=== PATIENT | male | born 1975 | race Caucasian/White ===

== ENCOUNTER → 2020-09-30 10:56 | Outpatient (BNVA) | payer BC, SELFPAY | PROVIDERS: PCP Nurse Practitioner Adult Health; Referring Provider Nurse Practitioner Adult Health; Visit Provider Internal Medicine | DX: E10.65 Type 1 diabetes mellitus with hyperglycemia (principal); E78.5 Hyperlipidemia, unspecified; I10 Essential (primary) hypertension; E04.2 Nontoxic multinodular goiter; E55.9 Vitamin D deficiency, unspecified | CPT/HCPCS: 82947 ==

== ENCOUNTER 2021-01-31 15:12 | Outpatient (REF) | payer BC, SELFPAY ==
[2021-01-31 18:00] LABS: Alanine Aminotransferase 43 U/L (0-40); Albumin Level 4.4 g/dL (3.5-5.0); Alkaline Phosphatase 57 U/L (39-117); Anion Gap 13 (12-20); Aspartate Amino Transferase 30 U/L (5-37); Bilirubin Total 0.5 mg/dL (0.0-1.0); Blood Urea Nitrogen 15 mg/dL (9-16); Calcium 9.1 mg/dL (8.4-10.2); Carbon Dioxide 25 mmol/L (22-29); Chloride 104 mmol/L (96-108); Cholesterol 203 mg/dL; Estimated Glomerular Filt Rate > 60; Glucose Random 231 mg/dL (60-115); HDL Cholesterol 37 mg/dL; LDL Cholesterol Calculated 103 mg/dl; Potassium 4.6 mmol/L (3.3-5.1); Sodium 137 mmol/L (135-145); Total Protein 7.3 g/dL (6.5-8.0); Triglycerides 317 mg/dL
[2021-01-31 18:22] LABS: Free T4 (Free Thyroxine) 0.86 ng/dL (0.71-1.85); Thyroid Stimulating Hormone 0.67 uIU/mL (0.32-4.0); Vitamin D 25-OH Total 26.6 ng/mL (>30)
[2021-02-01 03:39] LABS: Estimated Average Glucose 169 mg/dL; Hemoglobin A1c % 7.5 %
[2021-02-01 07:26] LABS: LDL Cholesterol Direct 134 mg/dL (<100)
== END 2021-01-31 15:13 | disposition home or self-care (01) ==
LOC: HO.LAB 15:12
PROVIDERS: PCP Nurse Practitioner Adult Health; Visit Provider Internal Medicine
DX: E10.65 Type 1 diabetes mellitus with hyperglycemia (principal); E04.2 Nontoxic multinodular goiter; E78.5 Hyperlipidemia, unspecified; I10 Essential (primary) hypertension; E55.9 Vitamin D deficiency, unspecified; Z79.4 Long term (current) use of insulin; Z79.899 Other long term (current) drug therapy
CPT/HCPCS: 36415; 80053; 80061; 82306; 82947; 83036; 83721; 84439; 84443

== ENCOUNTER 2021-02-08 13:43 | Outpatient (REF) | payer BC, SELFPAY ==
--- NOTE | ~2021-02-08 | US_ITS ---
EXAMINATION: US THYROID CLINICAL INFORMATION: Nontoxic multinodular goiter. COMPARISON: Ultrasound thyroid soft tissues neck 01/23/2020. Ultrasound soft tissue lymph node evaluation 09/23/2019. TECHNIQUE: Linear transducer grayscale and color Doppler examination with attention to the region of the thyroid. FINDINGS: SIZE: Measurements of the thyroid lobes and nodules are given in sagittal, anteroposterior and transverse dimensions respectively. Right Thyroid Lobe: 0.8 x 1.8 x 1.8 cm, volume 8.1 mL. Previously 5.6 x 1.8 x 1.7 cm, volume 9.0 mL. Parenchyma: The gland echotexture is homogeneous. Thyroid vascularity is normal. Left Thyroid Lobe: 1.7 x 1.5 x 5.3 cm, volume 5.3 mL. Previously 1.4 x 1.7 x 6.0 cm, volume 6.0 mL. Parenchyma: The gland echotexture is homogeneous. Thyroid vascularity is normal. Isthmus: 0.4 cm in maximum AP dimension. Previously 0.5 cm. Estimated total number of nodules greater than or equal to 1 cm: 0. There are 3 colloid cysts seen in the right lobe. NODES: No lymphadenopathy is seen in the tissue surrounding the thyroid gland. US/US thyroid IMPRESSION: Upper normal size thyroid gland. Three small right colloid cysts.
== END 2021-02-08 13:44 | disposition home or self-care (01) ==
LOC: HO.US 13:43
PROVIDERS: Visit Provider Internal Medicine
DX: E04.2 Nontoxic multinodular goiter (principal)
CPT/HCPCS: 76536

== ENCOUNTER → 2021-03-30 10:10 | Outpatient (BNVA) | payer BC, SELFPAY | PROVIDERS: PCP Nurse Practitioner Adult Health; Visit Provider Internal Medicine ==

== ENCOUNTER 2021-08-24 14:08 | Outpatient (REF) | payer BC, SELFPAY ==
[2021-08-24 16:31] LABS: Estimated Average Glucose 166 mg/dL; Hemoglobin A1c % 7.4 %
[2021-08-24 16:33] LABS: Alanine Aminotransferase 32 U/L (0-40); Albumin Level 4.3 g/dL (3.5-5.0); Alkaline Phosphatase 63 U/L (39-117); Anion Gap 10 (12-20); Aspartate Amino Transferase 25 U/L (5-37); Bilirubin Total 0.7 mg/dL (0.0-1.0); Blood Urea Nitrogen 10 mg/dL (9-16); Calcium 9.7 mg/dL (8.4-10.2); Carbon Dioxide 30 mmol/L (22-29); Chloride 104 mmol/L (96-108); Cholesterol 137 mg/dL; Estimated Glomerular Filt Rate > 60; Glucose Random 141 mg/dL (60-115); HDL Cholesterol 29 mg/dL; Potassium 4.3 mmol/L (3.3-5.1); Sodium 140 mmol/L (135-145); Total Protein 7.2 g/dL (6.5-8.0); Triglycerides 406 mg/dL
[2021-08-24 16:54] LABS: Thyroid Stimulating Hormone 1.82 uIU/mL (0.32-4.0); Vitamin D 25-OH Total 23.8 ng/mL (>30)
[2021-08-25 07:56] LABS: LDL Cholesterol Direct 68 mg/dL (<100)
[2021-08-25 16:16] LABS: Creatinine Urine 43.68 mg/dL; Microalbum/Creatinine Ratio Ur 13.7 ug/mg cr
== END 2021-08-24 14:09 | disposition home or self-care (01) ==
LOC: HO.LAB 14:08
PROVIDERS: PCP Nurse Practitioner Adult Health; Visit Provider Internal Medicine
DX: E10.65 Type 1 diabetes mellitus with hyperglycemia (principal); E78.5 Hyperlipidemia, unspecified; E04.2 Nontoxic multinodular goiter; E55.9 Vitamin D deficiency, unspecified; I10 Essential (primary) hypertension; Z79.899 Other long term (current) drug therapy; Z79.4 Long term (current) use of insulin
CPT/HCPCS: 36415; 80053; 80061; 82043; 82306; 82947; 83036; 83721; 84439; 84443

== ENCOUNTER → 2021-09-05 12:28 | Outpatient (BNVA) | payer BC, SELFPAY | PROVIDERS: PCP Nurse Practitioner Adult Health; Visit Provider Registered Nurse Diabetes Educator ==

== ENCOUNTER → 2021-11-03 14:34 | Outpatient (BNVA) | payer BC, SELFPAY | PROVIDERS: PCP Nurse Practitioner Adult Health; Visit Provider Registered Nurse Diabetes Educator ==

== ENCOUNTER → 2021-12-22 14:55 | Outpatient (BNVA) | payer BC, SELFPAY | PROVIDERS: PCP Nurse Practitioner Adult Health; Visit Provider Registered Nurse Diabetes Educator ==

== ENCOUNTER → 2022-03-16 11:37 | Outpatient (BNVA) | payer BC, SELFPAY | PROVIDERS: PCP Nurse Practitioner Adult Health; Visit Provider Internal Medicine | DX: E10.65 Type 1 diabetes mellitus with hyperglycemia (principal); E78.5 Hyperlipidemia, unspecified; I10 Essential (primary) hypertension; E04.2 Nontoxic multinodular goiter; E55.9 Vitamin D deficiency, unspecified ==

== ENCOUNTER 2022-06-06 15:31 | Outpatient (REF) | payer BC, SELFPAY ==
--- NOTE | ~2022-06-06 | US_ITS ---
EXAMINATION: US THYROID CLINICAL INFORMATION: Nontoxic multinodular goiter. COMPARISON: US thyroid 02/08/2021 TECHNIQUE: Linear transducer grayscale and color Doppler examination with attention to the region of the thyroid. FINDINGS: SIZE: Measurements of the thyroid lobes and nodules are given in sagittal, anteroposterior and transverse dimensions respectively. Right Thyroid Lobe: 5.2 x 2.0 x 1.8 cm, volume 9.8 mL. Previously 4.8 x 1.8 x 1.8 cm, volume 8.1 mL. Parenchyma: The gland echotexture is homogeneous. Thyroid vascularity is normal. Left Thyroid Lobe: 4.2 x 1.5 x 1.5 cm, volume 4.8 mL. Previously 4.0 x 1.7 x 1.5 cm, volume 5.3 mL. Parenchyma: The gland echotexture is homogeneous. Thyroid vascularity is normal. Isthmus: 0.4 cm in maximum AP dimension. Previously 0.4 cm. No suspicious focal thyroid nodule is seen. Two TR 1 colloid cysts are seen in the right thyroid lobe. NODES: No lymphadenopathy is seen in the tissue surrounding the thyroid gland. US/US thyroid IMPRESSION: No suspicious thyroid nodule. Two TR 1 colloid cysts are seen in the right thyroid lobe for which no follow-up imaging is recommended. ACR TI-RADS RECOMMENDATION REFERENCE: Ultrasound-guided fine-needle aspiration, followup ultrasound, no further follow up. * TR1 (0 point) and TR 2 (2 points): No FNA or follow up * TR3 (3 points): FNA if more than or equal to 2.5 cm in maximum dimension, followup ultrasound in 1, 3 and 5 years if 1.5 to 2.4 cm in maximum dimension. * TR4 (4-6 points): FNA if more than or equal to 1.5 cm in maximum dimension, followup ultrasound in 1, 2, 3 and 5 years if 1 to 1.4 cm in maximum dimension. * TR5 (more than or equal to 7 points): FNA if more than or equal to 1 cm in maximum dimension, followup ultrasound every year for 5 years if 0.5 to 0.9 cm in maximum dimension. * TR3, TR4 or TR5 nodules that are below the size threshold for follow up receive no follow up.
== END 2022-06-06 15:32 | disposition home or self-care (01) ==
LOC: HO.US 15:31
PROVIDERS: Visit Provider Internal Medicine
DX: E04.2 Nontoxic multinodular goiter (principal)
CPT/HCPCS: 76536

== ENCOUNTER → 2023-02-28 08:21 | Outpatient (BNVA) | payer BC, SELFPAY | PROVIDERS: PCP Nurse Practitioner Adult Health; Visit Provider Internal Medicine | DX: E10.65 Type 1 diabetes mellitus with hyperglycemia (principal); E78.5 Hyperlipidemia, unspecified; I10 Essential (primary) hypertension; E04.2 Nontoxic multinodular goiter; E55.9 Vitamin D deficiency, unspecified; Z79.899 Other long term (current) drug therapy | CPT/HCPCS: 82947; 83036 ==

== ENCOUNTER 2023-02-28 09:05 | Outpatient (REF) | payer BC, SELFPAY ==
[2023-02-28 14:21] LABS: Cholesterol 131 mg/dL; HDL Cholesterol 27 mg/dL; Triglycerides 629 mg/dL
[2023-02-28 14:39] LABS: Free T4 (Free Thyroxine) 0.92 ng/dL (0.71-1.85); Thyroid Stimulating Hormone 3.72 uIU/mL (0.32-4.0); Vitamin D 25-OH Total 24.5 ng/mL (>30)
[2023-03-02 03:44] LABS: LDL Cholesterol Direct 42 mg/dL (<100)
== END 2023-02-28 09:06 | disposition home or self-care (01) ==
LOC: HO.10HDL 09:05
PROVIDERS: Visit Provider Internal Medicine
DX: E10.65 Type 1 diabetes mellitus with hyperglycemia (principal); E55.9 Vitamin D deficiency, unspecified; E04.2 Nontoxic multinodular goiter; E78.5 Hyperlipidemia, unspecified
CPT/HCPCS: 36415; 80061; 82306; 83721; 84439; 84443

== ENCOUNTER 2023-12-03 15:47 | Outpatient (AMB) | payer BC, SELFPAY ==
[2023-12-03 15:50] VITALS: BP 146/80; PULSE 76; BMI 36.3
--- NOTE | 2023-12-03 15:50 | A.OFFVIS_ITS ---
Intake Vital Signs 12/03/23 15:50 Height 5 ft 7 in Weight 231 lb 14.821 oz BMI 36.3 BP 146/80 H Blood Pressure Location Lt brachial Position Sitting Pulse 76 Pulse Source Pulse Oximeter Intake Visit Reasons: dm Intake Note: Patient present today to follow up on Type 1 Diabetes Mellitus, last seen by Dr. Alba on 02/28/2023. Last Diabetic Eye exam: 08/09/2023 [facility] Last Podiatry Visit: 08/2023 Random Glucose: 96 mg/dl HgA1C: 6.8% Administration Intern Required: No Accompanied by: Significant Other Allergies niacin [Niaspan Extended-Release] Allergy (Severe, Verified 12/03/23 16:03) Itching morhine Allergy (Unknown, Uncoded 02/28/23 08:44) Hallucinations Statin Adverse Reaction (Unknown, Uncoded 02/28/23 08:44) Muscle pain Medication List - Last Reconciled 12/03/23 by Reggie Ford MD aspirin 81 mg PO DAILY carvedilol 25 mg PO BID cholecalciferol (vitamin D3) 50 mcg PO DAILY 30 days coQ10 (ubiquinol) (Qunol Tigre CoQ10) 200 mg PO DAILY empagliflozin (Jardiance) 10 mg PO DAILY ezetimibe 10 mg PO DAILY fenofibrate 150 mg PO DAILY 30 days fluoxetine 40 mg PO DAILY furosemide 40 mg PO DAILY gabapentin 1,200 mg PO QID insulin aspart U-100 (Novolog FlexPen U-100 Insulin aspart) 1 sliding scale dose subcut USEASDIRECTD insulin glargine U-300 conc (Toujeo SoloStar U-300 Insulin) 90 units (0.3 mL) subcut DAILY lamotrigine 100 mg PO DAILY lisinopril 20 mg PO DAILY loratadine 10 mg PO DAILY magnesium hydroxide (Dulcolax (magnesium hydroxide)) 400 mg PO DAILY PRN metformin 1,000 mg PO BID rosuvastatin 40 mg PO DAILY 30 days ticagrelor (Brilinta) 90 mg PO BID HPI HPI Comments History of Present Illness Details 48 year-old male with a past medical history of type 1 diabetes, nontoxic multinodular goiter who is seen in follow-up today for the same. Diagnosed with type 1 diabetes in 1997. Developed Pancreatitis in 2014 and has subsequently had 2 pancreatic pseudocysts. Current regimen is Metformin 1000 mg PO BID, Tresiba 93 units qAM and log ICR 4, ISF 50 with goal of 120. He reports good compliance with his insulin though he does admit to not accurately calculating portion sizes and carbohydrates for his mealtime boluses. He has DEXCOM G6 sensor. 14 days of data downloaded from 11/20/23-12/03/23. This reveals an average glucose of 161 with an SD of 58. GMI is 7.2%. He is at goal 66% of the time, above goal 33% of the time, and below goal <1% of the time.. Snow shows elevations in post-dinner glucose but trend downward overnight Has low sugars rarely. Treats according to the rule of 15's. Denies family history of autoimmunity. Has eyes checked yearly, last eye exam 2 mos ago has retinopathy. Has Neuropathy, sees podiatry regularly. 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 Foot exam completed 09/30/2020. Denies nephropathy, on Lisinopril 10 mg PO daily. UAC 13.7 08/24/2021. Has a history of HLD, and premature CAD in his father with prior ID in his 40's. LDL 46 03/14/2022. On Rosuvastatin 5 mg PO daily and also Zetia 10 mg PO daily. Has CAD and did have 2 stents placed recently. Has attended [facility]. Is interested in the Omnipod. Denies prior DKA. Continues to drink sugary beverages during his waking hours. Denies severe hypoglycemia in the past. Also with nontoxic MNG. Thyroid US 02/08/2021: Right Thyroid Lobe: 0.8 x 1.8 x 1.8 cm, volume 8.1 mL. Previously 5.6 x 1.8 x 1.7 cm, volume 9.0 mL. Parenchyma: The gland echotexture is homogeneous. Thyroid vascularity is normal. Left Thyroid Lobe: 1.7 x 1.5 x 5.3 cm, volume 5.3 mL. Previously 1.4 x 1.7 x 6.0 cm, volume 6.0 mL. Parenchyma: The gland echotexture is homogeneous. Thyroid vascularity is normal. Isthmus: 0.4 cm in maximum AP dimension. Previously 0.5 cm. Estimated total number of nodules greater than or equal to 1 cm: 0. There are 3 colloid cysts seen in the right lobe. NODES: No lymphadenopathy is seen in the tissue surrounding the thyroid gland. Labs: Laboratory Tests 02/14/19 05/10/20 05/10/20 00:00 08:30 08:30 Sodium 141 Potassium 4.0 Creatinine 0.82 Est GFR (Non-Af Am er) > 60 Hgb A1c (Clinic) LDL Cholesterol Di rect 93 25-OH Vitamin D To isabela 19.2 Microalb/Creat Rat io 16.6 09/30/20 11:24 Sodium Potassium Creatinine Est GFR (Non-Af Am er) Hgb A1c (Clinic) 7.5 H LDL Cholesterol Di rect 25-OH Vitamin D To isabela Microalb/Creat Rat io PFSH Medical History HLD (hyperlipidemia) HTN (hypertension) Multinodular thyroid T1DM (type 1 diabetes mellitus) Vitamin D deficiency Surgical History Hx of heart artery stent Hx of cholecystectomy History of appendectomy Family History Father Pancreatic disease CVD (cardiovascular disease) HTN (hypertension) Mother HTN (hypertension) Social History Alcohol intake: current Patient Tobacco Use Status: Never used Tobacco Physical Exam Vital Signs: Last Vital Signs Pulse 76 12/03/23 15:50 BP 146/80 H 12/03/23 15:50 BMI result Body Mass Index 36.3 Absence of Cushingoid features. Absence of acromegalic features. Neck exam reveals nl size thyroid about 15 gms. No thyroid nodules palpable. No carotid bruits present. Lungs CTA. Heart S1 S2, Reg R/R. No M/R/ G. Skin exam reveals absence of vitiligo or acanthosis nigricans. Abdominal exam reveals Soft NT/ND with NA BS. No organomegaly present. Neck Other: . Extrem Other: Visual exam of foot performed. Digit fifth digit amputation No ulcerations or open lesions. No onchomycosis, no callouses.Pulses 2 + distally Sensation decreased to monofilament exam. Vibratory sensation sensed is i decreased with 128 Hz tuning fork Results Reviewed Results Reviewed: Laboratory Last Values Glucose (Clinic) 96 mg/dL (60-115) 12/03/23 16:01 Assessment & Plan Assessment & Plan (1) T1DM (type 1 diabetes mellitus): Code(s): E10.9 - Type 1 diabetes mellitus without complications Qualifiers: Diabetes mellitus complication status: with hyperglycemia Qualified Code(s): E10.65 - Type 1 diabetes mellitus with hyperglycemia Plan: This is a 48-year-old white male with a history of type 1 diabetes being treated with basal-bolus insulin metformin with excellent glycemic control and known microvascular and macrovascular complications namely retinopathy, neuropathy and CAD Plan is to continue the current regimen. Patient will follow-up with the CDE and he was interested in getting an Omnipod 5 and may pursue this or iLet pump. I also prescribed glucagon rescue Baquimi . Lastly, we will check microalbumin to creatinine ratio lipid profile. I agree with airconditioning drafting officer starting Jardiance 10 mg and he will follow patient as this will be used in combination with furosemide. (2) Multinodular thyroid: Code(s): E04.2 - Nontoxic multinodular goiter Plan: Subcentimeter nodules not needing follow-up Orders: Orders AMB Hemoglobin A1c Today E10.9 - Type 1 diabetes mellitus without complications Medications: New glucagon 3 mg/actuation (Baqsimi) 3 mg intranasal ONCE 2 ea 4RF glucagon 3 mg/actuation (Baqsimi) 3 mg intranasal ONCE 2 ea 4RF Refilled insulin glargine U-300 conc (Toujeo SoloStar U-300 Insulin) 90 units (0.3 mL) subcut DAILY 9 mL 11RF Coding Level of Care Code Est Pt Level 4 (81929) Diagnoses Type 1 diabetes mellitus with hyperglycemia E10.65 Diabetes mellitus complication status: with hyperglycemia Multinodular thyroid E04.2
[2023-12-03 16:05] LABS: Glucose, Whole Blood 96 mg/dL (60-115)
== END 2023-12-03 16:45 | disposition home or self-care (01) ==
PROVIDERS: PCP Nurse Practitioner Adult Health; Visit Provider Internal Medicine Endocrinology, Diabetes & Metabolism
DX: E10.9 Type 1 diabetes mellitus without complications (principal)
CPT/HCPCS: 99214

== ENCOUNTER → 2023-12-03 15:47 | Outpatient (BNVA) | payer BC, SELFPAY | PROVIDERS: PCP Nurse Practitioner Adult Health; Visit Provider Internal Medicine Endocrinology, Diabetes & Metabolism | DX: E10.65 Type 1 diabetes mellitus with hyperglycemia (principal); E04.2 Nontoxic multinodular goiter | CPT/HCPCS: 82947; 83036 ==

== ENCOUNTER 2023-12-11 14:47 | Outpatient (AMB) | payer BC, SELFPAY ==
--- NOTE | 2023-12-11 15:44 | A.OFFVIS_ITS ---
Intake Intake Visit Reasons: DM/confirmed Leather Polisher Required: No Accompanied by: Self / Same As Patient Allergies niacin [Niaspan Extended-Release] Allergy (Severe, Verified 12/03/23 16:03) Itching morhine Allergy (Unknown, Uncoded 02/28/23 08:44) Hallucinations Statin Adverse Reaction (Unknown, Uncoded 02/28/23 08:44) Muscle pain HPI Comprehensive Diabetes Asmnt Most Recent Diabetes Results: Hemoglobin A1c 7.3 % 12/01/19 Microalb/Creat Ratio 13.7 ug/mg cr 08/24/21 Cholesterol 131 mg/dL 02/28/23 HDL Cholesterol 27 mg/dL 02/28/23 Triglycerides 629 mg/dL 02/28/23 Creatinine 0.77 mg/dL (0.5-1.4) 08/24/21 Blood Urea Nitrogen 10 mg/dL (9-16) 08/24/21 Sodium 140 mmol/L (135-145) 08/24/21 Potassium 4.3 mmol/L (3.3-5.1) 08/24/21 Chloride 104 mmol/L (96-108) 08/24/21 Carbon Dioxide 30 mmol/L (22-29) H 08/24/21 Calcium 9.7 mg/dL (8.4-10.2) 08/24/21 AST 25 U/L (5-37) 08/24/21 ALT 32 U/L (0-40) 08/24/21 Total Protein 7.2 g/dL (6.5-8.0) 08/24/21 Albumin 4.3 g/dL (3.5-5.0) 08/24/21 [facility] Medical History HLD (hyperlipidemia) HTN (hypertension) Multinodular thyroid T1DM (type 1 diabetes mellitus) Vitamin D deficiency Surgical History Hx of heart artery stent Hx of cholecystectomy History of appendectomy Family History Father Pancreatic disease CVD (cardiovascular disease) HTN (hypertension) Mother HTN (hypertension) Social History Alcohol intake: current Patient Tobacco Use Status: Never used Tobacco Assessment & Plan Assessment & Plan (1) T1DM (type 1 diabetes mellitus): Code(s): E10.9 - Type 1 diabetes mellitus without complications Qualifiers: Diabetes mellitus complication status: with hyperglycemia Qualified Code(s): E10.65 - Type 1 diabetes mellitus with hyperglycemia Plan: Pump Assessment: Type of DM type 1 Current Insulin Rx: MDI Patient takes insulin as prescribed: Yes Patient? checks BG with Dexcom G6 Patient? reports glycemic control as: Good Most recent Hgb A1C: 6.8%, November 2023 Frequency of low BG: Candy Low BG treatment: Infrequently Frequency of high BG: Daily Has pt been on a pump in the past? No Reviewed insulin pump basics today with Patient. Explained pros and cons of insulin pumps. Showed pt various pumps, infusion sets, and cgms currently available. Reviewed need to wear pump 24/ and need to change infusion set every 3 days. Also stressed importance of frequent BG checks, 4x daily minimum or use pump that is integrated with CGM.? Patient demonstrated motivation for continued insulin pump education and understands the need to complete education prior to starting insulin pump for best outcome. Reviewed the basic principles of carbohydrate counting.? Insulin to carb ratio, and insulin sensitivity factor calculated based on Patient's TDD estimate 173 units Patient currently uses insulin to carbohydrate ratio of 1-4 Sensitivity factor 1-8 Pt reports that desired blood glucose target is 100-120 mg/dL Pt able to calculated needed insulin based on estimated carbohydrate content Pt demonstrated at visit how to calculate mealtime insulin bolus and correction bolus. Instructed patient that there may need to be adjustment to insulin to carb ratio and sensitivity factor based on blood glucose trends. Patient is interested in Omnipod 5 Patient Instructions: Patient will contact early childhood special educator for insulin pump training appointment Coding Level of Care Code Est Pt Level 1 (64710) Diagnoses Type 1 diabetes mellitus with hyperglycemia E10.65 Diabetes mellitus complication status: with hyperglycemia
== END 2023-12-11 15:48 | disposition home or self-care (01) ==
PROVIDERS: PCP Nurse Practitioner Adult Health; Visit Provider Registered Nurse Diabetes Educator
DX: E10.65 Type 1 diabetes mellitus with hyperglycemia (principal)

== ENCOUNTER → 2023-12-11 14:47 | Outpatient (BNVA) | payer BC, SELFPAY | PROVIDERS: PCP Nurse Practitioner Adult Health; Visit Provider Registered Nurse Diabetes Educator | DX: Z46.81 Encounter for fitting and adjustment of insulin pump (principal); E10.65 Type 1 diabetes mellitus with hyperglycemia | CPT/HCPCS: 99211 ==

== ENCOUNTER 2024-04-01 15:16 | Outpatient (AMB) | payer BC, SELFPAY ==
--- NOTE | 2024-04-01 16:09 | A.OFFVIS_ITS ---
Intake Intake Visit Reasons: Pump training/CONFIRMED Real Estate Photographer Required: No Accompanied by: Self / Same As Patient Allergies niacin [Niaspan Extended-Release] Allergy (Severe, Verified 12/03/23 16:03) Itching morhine Allergy (Unknown, Uncoded 02/28/23 08:44) Hallucinations Statin Adverse Reaction (Unknown, Uncoded 02/28/23 08:44) Muscle pain HPI Comprehensive Diabetes Asmnt Most Recent Diabetes Results: Cholesterol 131 mg/dL 02/28/23 HDL Cholesterol 27 mg/dL 02/28/23 Triglycerides 629 mg/dL 02/28/23 PFSH Medical History HLD (hyperlipidemia) HTN (hypertension) Multinodular thyroid T1DM (type 1 diabetes mellitus) Vitamin D deficiency Surgical History Hx of heart artery stent Hx of cholecystectomy History of appendectomy Family History Father Pancreatic disease CVD (cardiovascular disease) HTN (hypertension) Mother HTN (hypertension) Social History Alcohol intake: current Patient Tobacco Use Status: Never used Tobacco Assessment & Plan Assessment & Plan (1) T1DM (type 1 diabetes mellitus): Code(s): E10.9 - Type 1 diabetes mellitus without complications Qualifiers: Diabetes mellitus complication status: with hyperglycemia Qualified Code(s): E10.65 - Type 1 diabetes mellitus with hyperglycemia Plan Patient presents for pump training for Omnipod 5 pump and CGM training today. Patient set up insulin pump independently, came in today with insulin pump already running. Reviewed patient's pump setting, did recommend to patient he reduce basal rates, and enter carbohydrates more frequently for optimal insulin pump control The following topics were reviewed today: -Pump therapy basic concepts: Basal/bolus, insulin to carb ratio, correction factor, insulin on board -Device settings: Bluetooth/mobile connection (if applicable), correct date and time, sound volume -connected patient to [employer] account CGM info Above target 33% At target 67% Below target 0% Average glucose for the past 11 days 169 mg/dL Insulin delivery settings Reprogramed insulin to carb ratio, correction factor, target blood glucose, suspend or resume insulin delivery, bolus limit and basal limit settings, based on CGM data Instructed patient to only use room temperature insulin, how to load cartridge or fill pod, with insulin. Fill tubing and cannula (if applicable) Inserting infusion set or starting pod Troubleshooting after starting new pod or inserting new insulin set: Occlusion, adhesive tape sensitivity, redness Check BG 2 hours after site change Safety information: Importance of a backup plan, for manual injections, proper prescriptions and emergency supplies ketone strips, and rules for testing for ketones Patient understands the basic concepts of pump therapy, how to give insulin for meals and snacks, how to troubleshoot for hyper and hypoglycemia. Setting verified by [facility] Basal rate(s) (units/hour) : 12 AM? to 12 AM? 15 units / hr Bolus setting Insulin Carbohydrate Ratio (s) 12 AM? to 12 AM 1:3 Correction Factor / Sensitivity Factor 12 AM? to 12 AM 1:6 Active Insulin Time:? 2 hours Target(s): 12 AM? to 12 AM 110 mg/dL Correction threshold: 120 mg/dL Patient will follow up with [facility] as instructed Patient will contact [facility] with questions or concerns, patient given IT number to support in any technical issues related to insulin pump Portions of this note were created using voice recognition software, please excuse any words or phrases that may have been misinterpreted. Coding Level of Care Code Est Pt Level 1 (88708) Diagnoses Type 1 diabetes mellitus with hyperglycemia E10.65 Diabetes mellitus complication status: with hyperglycemia
== END 2024-04-01 16:16 | disposition home or self-care (01) ==
PROVIDERS: PCP Nurse Practitioner Adult Health; Visit Provider Registered Nurse Diabetes Educator
DX: E10.65 Type 1 diabetes mellitus with hyperglycemia (principal)

== ENCOUNTER → 2024-04-01 15:16 | Outpatient (BNVA) | payer BC, SELFPAY | PROVIDERS: PCP Nurse Practitioner Adult Health; Visit Provider Registered Nurse Diabetes Educator ==

== ENCOUNTER 2024-04-01 16:13 | Outpatient (REF) | payer BC, SELFPAY ==
[2024-04-01 17:21] LABS: Alanine Aminotransferase 28 U/L (0-40); Albumin Level 4.5 g/dL (3.5-5.0); Alkaline Phosphatase 45 U/L (39-117); Anion Gap 15 (12-20); Aspartate Amino Transferase 33 U/L (5-37); Bilirubin Total 0.3 mg/dL (0.0-1.0); Blood Urea Nitrogen 25 mg/dL (9-16); Calcium 10.1 mg/dL (8.4-10.2); Carbon Dioxide 24 mmol/L (22-29); Chloride 108 mmol/L (96-108); Cholesterol 96 mg/dL (<200); Estimated Glomerular Filt Rate > 60; Glucose Random 139 mg/dL (60-115); HDL Cholesterol 28 mg/dL (>40); LDL Cholesterol Calculated 16 mg/dL (<100); Potassium 4.7 mmol/L (3.3-5.1); Sodium 142 mmol/L (135-145); Total Protein 7.5 g/dL (6.5-8.0); Triglycerides 263 mg/dL (<150)
== END 2024-04-01 16:14 | disposition home or self-care (01) ==
LOC: HO.LAB 16:13
PROVIDERS: Internal Medicine Endocrinology, Diabetes & Metabolism; Visit Provider Physician Assistant
DX: E10.65 Type 1 diabetes mellitus with hyperglycemia (principal)
CPT/HCPCS: 36415; 80053; 80061; 99211

== ENCOUNTER 2024-05-15 17:05 | Outpatient (REF) | payer BC, SELFPAY ==
[2024-05-15 17:54] LABS: Creatinine Urine 196.11 mg/dL; Microalbum/Creatinine Ratio Ur 6.6 ug/mg cr (<30)
== END 2024-05-15 17:06 | disposition home or self-care (01) ==
LOC: HO.LNP 17:05
PROVIDERS: Visit Provider Internal Medicine Endocrinology, Diabetes & Metabolism
DX: E10.65 Type 1 diabetes mellitus with hyperglycemia (principal)
CPT/HCPCS: 82043; 82570

== ENCOUNTER 2024-05-19 13:52 | Outpatient (AMB) | payer BC, SELFPAY ==
--- NOTE | 2024-05-19 13:56 | A.OFFVIS_ITS ---
Vital Signs 05/19/24 13:57 Height 5 ft 7 in Weight 233 lb 11.04 oz BMI 36.6 BP 160/92 H Blood Pressure Location Lt brachial Position Sitting Pulse 67 Pulse Source Pulse Oximeter Intake Visit Reasons: F/U T1DM/confirmed Intake Note: Patient presents today to follow up on D2MT. Last Diabetic Eye exam: 01/2024 Last Podiatry Visit: 01/2024 Random Glucose: 230 mg/dl HgA1c: 7.2% Data Modeling Architect Required: No Accompanied by: Self / Same As Patient Allergies niacin [Niaspan Extended-Release] Allergy (Severe, Verified 05/19/24 14:02) Itching morhine Allergy (Unknown, Uncoded 05/19/24 14:02) Hallucinations Statin Adverse Reaction (Unknown, Uncoded 05/19/24 14:02) Muscle pain HPI Comments Details: 49 year-old male with a past medical history of type 1 diabetes, nontoxic multinodular goiter who is seen in follow-up today for the same. Diagnosed with type 1 diabetes in 1997. Developed Pancreatitis in 2014 and has subsequently had 2 pancreatic pseudocysts. Current regimen is Metformin 1000 mg PO BID, Started Omniopod 5 pump this wk Basal rate(s) (units/hour) : Not wearing pump 12 AM? to 12 AM? 1.5 units / hr Bolus setting Insulin Carbohydrate Ratio (s) 12 AM? to 12 AM 1:3 Correction Factor / Sensitivity Factor 12 AM? to 12 AM 1:6 Active Insulin Time:? 2 hours Target(s): 12 AM? to 12 AM 110 mg/dL Correction threshold: 120 mg/dL Off pump for 24 hrs . Took SQ injections He has DEXOmnisio G6 sensor. 14 days of data downloaded from 05/06/2024 to 05/19/2020This reveals an average glucose of 181 with an SD of 46. GMI is 7.6%. He is at goal 56% of the time, above goal 43% of the time, and below goal <1% of the time.. Pattern shows persistent elevation throughout the day. Has low sugars rarely. Treats according to the rule of 15's. Denies family history of autoimmunity. Has eyes checked yearly, last eye exam 3 mos a go has retinopathy. Has Neuropathy, sees podiatry regularly. 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 Foot exam completed 09/30/2020. Denies nephropathy, on Lisinopril 10 mg PO daily. UAC 13.7 08/24/2021. Has a history of HLD, and premature CAD in his father with prior CO in his 40's. LDL 46 03/14/2022. On Rosuvastatin 5 mg PO daily and also Zetia 10 mg PO daily. Has CAD and did have 2 stents placed recently. Has attended [facility]. Denies prior DKA. Continues to drink sugary beverages during his waking hours. Denies severe hypoglycemia in the past. Also with nontoxic MNG. Thyroid US 02/08/2021: Right Thyroid Lobe: 0.8 x 1.8 x 1.8 cm, volume 8.1 mL. Previously 5.6 x 1.8 x 1.7 cm, volume 9.0 mL. Parenchyma: The gland echotexture is homogeneous. Thyroid vascularity is normal. Left Thyroid Lobe: 1.7 x 1.5 x 5.3 cm, volume 5.3 mL. Previously 1.4 x 1.7 x 6.0 cm, volume 6.0 mL. Parenchyma: The gland echotexture is homogeneous. Thyroid vascularity is normal. Isthmus: 0.4 cm in maximum AP dimension. Previously 0.5 cm. Estimated total number of nodules greater than or equal to 1 cm: 0. There are 3 colloid cysts seen in the right lobe. NODES: No lymphadenopathy is seen in the tissue surrounding the thyroid gland. Labs: Laboratory Tests 02/14/19 05/10/20 05/10/20 00:00 08:30 08:30 Sodium 141 Potassium 4.0 Creatinine 0.82 Est GFR (Non-Af Amer) > 60 Hgb A1c (Clinic) LDL Cholesterol Direct 93 25-OH Vitamin D Total 19.2 Microalb/Creat Ratio 16.6 09/30/20 11:24 Sodium Potassium Creatinine Est GFR (Non-Af Amer) Hgb A1c (Clinic) 7.5 H LDL Cholesterol Direct 25-OH Vitamin D Total Microalb/Creat Ratio [facility] Medical History HLD (hyperlipidemia) HTN (hypertension) Multinodular thyroid T1DM (type 1 diabetes mellitus) Vitamin D deficiency Surgical History Hx of heart artery stent Hx of cholecystectomy History of appendectomy Family History Father Pancreatic disease CVD (cardiovascular disease) HTN (hypertension) Mother HTN (hypertension) Social History Alcohol intake: current Patient Tobacco Use Status: Never used Tobacco Physical Exam Vital Signs: Last Vital Signs Pulse 67 05/19/24 13:57 BP 160/92 H 05/19/24 13:57 BMI result Body Mass Index 36.6 Absence of Cushingoid features. Absence of acromegalic features. Neck exam reveals nl size thyroid about 15 gms. No thyroid nodules palpable. No carotid bruits present. Lungs CTA. Heart S1 S2, Reg R/R. No M/R/ G. Skin exam reveals absence of vitiligo or acanthosis nigricans. Abdominal exam reveals Soft NT/ND with NA BS. No organomegaly present. Neck Other: . Extrem Other: Visual exam of foot performed. Digit fifth digit amputation No ulcerations or open lesions. No onchomycosis, no callouses.Pulses 2 + distally Sensation decreased to monofilament exam. Vibratory sensation sensed is i decreased with 128 Hz tuning fork Results AMB Hemoglobin A1c AMB Hemoglobin A1c 7.2 % Last Edit by UYEN Veronica on 05/19/24 14:22 Results Reviewed Results Reviewed: Laboratory Last Values Glucose (Clinic) 230 mg/dL (60-115) H 05/19/24 14:06 Hgb A1c (Clinic) 7.2 % (4.0-6.0) H 05/19/24 14:22 Assessment & Plan Assessment & Plan (1) T1DM (type 1 diabetes mellitus): Code(s): E10.9 - Type 1 diabetes mellitus without complications Category: Medical Qualifiers: Diabetes mellitus complication status: with hyperglycemia Qualified Code(s): E10.65 - Type 1 diabetes mellitus with hyperglycemia Plan: This is a 49-year-old white male with a history of type 1 diabetes being treated with insulin pump metformin and Jardiance started by cardiology with Fair glycemic control and known microvascular and macrovascular complications namely retinopathy, neuropathy and CAD Plan is to hold the Jardiance because the concern of diabetic ketoacidosis type 1 diabetes. Would increase basal rate to 1.8 units an hour. Will have patient follow-up with Tamara Rogers NP in 1 mo (2) Multinodular thyroid: Code(s): E04.2 - Nontoxic multinodular goiter Category: Medical Plan: Subcentimeter nodules not needing follow-up Orders: Orders AMB Hemoglobin A1c Today E10.65 - Type 1 diabetes mellitus with hyperglycemia, Z13.9 - Encounter for screening, unspecified Coding Level of Care Code Est Pt Level 4 (45352) Diagnoses Type 1 diabetes mellitus with hyperglycemia E10.65 Diabetes mellitus complication status: with hyperglycemia Multinodular thyroid E04.2
[2024-05-19 13:57] VITALS: BP 160/92; PULSE 67; BMI 36.6
[2024-05-19 14:10] LABS: Glucose, Whole Blood 230 mg/dL (60-115)
== END 2024-05-19 14:32 | disposition home or self-care (01) ==
PROVIDERS: PCP Nurse Practitioner Adult Health; Visit Provider Physician Assistant
DX: Z13.9 Encounter for screening, unspecified (principal); E10.65 Type 1 diabetes mellitus with hyperglycemia; E04.2 Nontoxic multinodular goiter
CPT/HCPCS: 99214

== ENCOUNTER → 2024-05-19 13:52 | Outpatient (BNVA) | payer BC, SELFPAY | PROVIDERS: PCP Nurse Practitioner Adult Health; Visit Provider Physician Assistant | DX: E10.65 Type 1 diabetes mellitus with hyperglycemia (principal); E04.2 Nontoxic multinodular goiter; Z96.41 Presence of insulin pump (external) (internal) | CPT/HCPCS: 82947; 83036 ==

== ENCOUNTER 2024-09-11 15:54 | Outpatient (AMB) | payer BC, SELFPAY ==
--- NOTE | 2024-09-11 07:40 | MHC.OFFVIS ---
Intake Visit Reasons: F/U T1DM/LVM Allergies niacin [Niaspan Extended-Release] Allergy (Severe, Verified 05/19/24 14:02) Itching morhine Allergy (Unknown, Uncoded 05/19/24 14:02) Hallucinations Statin Adverse Reaction (Unknown, Uncoded 05/19/24 14:02) Muscle pain HPI Comments Details: 49 year-old male with a past medical history of type 2 diabetes, nontoxic multinodular goiter who is seen in follow-up today for the same. He was last seen by Dr. Ford 05/19/2024 and by Dawna Kam CDE 04/01/2024. He is on an insulin pump Diagnosed with diabetes in 1997. Developed Pancreatitis in 2014 and has subsequently had 2 pancreatic pseudocysts. Current regimen: Omnipod 5 insulin pump Metformin 1000 mg PO BID, Jardiance 10 mg Basal rate(s) (units/hour) : 12 AM? to 12 AM? 1.5 units / hr Bolus setting Insulin Carbohydrate Ratio (s) 12 AM? to 12 AM 1:3 Correction Factor / Sensitivity Factor 12 AM? to 12 AM 1:6 Active Insulin Time:? 2 hours Target(s): 12 AM? to 12 AM 110 mg/dL Correction threshold: 120 mg/dL Dexcom average glucose: [ ] 14 day continuous glucose monitor report reviewed Glucose Managment indicator [ ] % Days with CGM data [ ] % TIme in ranges: [ ] % very high (above 250) [ ] % high ?(181-250) [ ] % in range ?(70-180] [ ] % low (69-55) [ ] % ?very low (below 54) [ ] Standard Deviation Interpretation [ ] Has low sugars rarely. Treats according to the rule of 15's. Denies family history of autoimmunity. Has retinopathy: last eye exam 3 mos a go Has Neuropathy, sees podiatry regularly. 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 No nephropathy, on Lisinopril 10 mg PO daily. UAC 13.7 08/24/2021. Has a history of HLD, and premature CAD in his father with prior [place] in his 40's. LDL 16 04/01/24. On Rosuvastatin 5 mg PO daily and also Zetia 10 mg PO daily. Has CAD and did have 2 stents placed recently. Has attended CDE. Denies prior DKA. Continues to drink sugary beverages during his waking hours. Denies severe hypoglycemia in the past. Also with nontoxic MNG. Thyroid US 02/08/2021: Right Thyroid Lobe: 0.8 x 1.8 x 1.8 cm, volume 8.1 mL. Previously 5.6 x 1.8 x 1.7 cm, volume 9.0 mL. Parenchyma: The gland echotexture is homogeneous. Thyroid vascularity is normal. Left Thyroid Lobe: 1.7 x 1.5 x 5.3 cm, volume 5.3 mL. Previously 1.4 x 1.7 x 6.0 cm, volume 6.0 mL. Parenchyma: The gland echotexture is homogeneous. Thyroid vascularity is normal. Isthmus: 0.4 cm in maximum AP dimension. Previously 0.5 cm. Estimated total number of nodules greater than or equal to 1 cm: 0. There are 3 colloid cysts seen in the right lobe. NODES: No lymphadenopathy is seen in the tissue surrounding the thyroid gland. [facility] Medical History HLD (hyperlipidemia) HTN (hypertension) Multinodular thyroid T1DM (type 1 diabetes mellitus) Vitamin D deficiency Surgical History Hx of heart artery stent Hx of cholecystectomy History of appendectomy Family History Father Pancreatic disease CVD (cardiovascular disease) HTN (hypertension) Mother HTN (hypertension) Social History Alcohol intake: current Patient Tobacco Use Status: Never used Tobacco Coding
--- NOTE | 2024-09-11 15:56 | A.OFFVIS_ITS ---
Vital Signs 09/11/24 16:06 Height 5 ft 7 in Weight 235 lb 14.314 oz BMI 36.9 BP 120/80 Blood Pressure Location Rt brachial Position Sitting Pulse 62 Pulse Source Pulse Oximeter Intake Visit Reasons: F/U T1DM/LVM Intake Note: Patient presents today for a follow-up on Type 1 Diabetes Mellitus: Last Diabetic eye exam was on: 07/09/2024 Last Podiatry exam was on: 09/09/2024 Most recent HbA1c: 6.6%, 09/11/2024 Random Glucose- 210 mg/dL, Today Flat Lock Operator Required: No Accompanied by: Self / Same As Patient Allergies niacin [Niaspan Extended-Release] Allergy (Severe, Verified 09/11/24 15:57) Itching morhine Allergy (Unknown, Uncoded 09/11/24 15:57) Hallucinations Statin Adverse Reaction (Unknown, Uncoded 09/11/24 15:57) Muscle pain Medication List - Last Reconciled 09/11/24 by Tamara Rogers NP aspirin 81 mg PO DAILY blood-glucose sensor (Dexcom G6 Sensor device) As directed change every 10 days blood-glucose sensor (Dexcom G6 Sensor device) As directed change every 10 days blood-glucose transmitter (Dexcom G6 Transmitter device) As directed carvedilol 25 mg PO BID cholecalciferol (vitamin D3) 50 mcg PO DAILY 30 days coQ10 (ubiquinol) (Qunol Tigre CoQ10) 200 mg PO DAILY ezetimibe 10 mg PO DAILY fenofibrate 150 mg PO DAILY fluoxetine 40 mg PO DAILY furosemide 40 mg PO DAILY gabapentin 1,200 mg PO QID glucagon 3 mg/actuation (Baqsimi) 3 mg intranasal ONCE insulin aspart U-100 (Novolog FlexPen U-100 Insulin aspart) 1 sliding scale dose subcut USEASDIRECTD insulin aspart U-100 (Novolog U-100 Insulin aspart) infuse up to 150 units per day via insulin pump subcutaneously; insulin pump cart,auto,BT-cntr (Omnipod 5 G6 Intro Kit (Gen 5) subcutaneous cartridge with controller) As directed insulin pump cart,automated,BT (Omnipod 5 G6 Pods (Gen 5) subcutaneous cartridge) As directed change every 48 hrs lamotrigine 100 mg PO DAILY lisinopril 20 mg PO DAILY loratadine 10 mg PO DAILY magnesium hydroxide (Dulcolax (magnesium hydroxide)) 400 mg PO DAILY PRN metformin 1,000 mg PO BID rosuvastatin 40 mg PO DAILY 30 days ticagrelor (Brilinta) 90 mg PO BID HPI Comments Details: 49 year-old male with a past medical history of type 1 diabetes, nontoxic multinodular goiter who is seen in follow-up today for the same. He was last seen by Dr. Ford 05/19/24. 09/11/2024 A1c 6.6%, previous 7.2%. Diagnosed with type 1 diabetes in 1997. Developed Pancreatitis in 2014 and has subsequently had 2 pancreatic pseudocysts. Current regimen is Metformin 1000 mg PO BID, Started Omniopod 5 in March of this year and did not have success with this. He had multiple times when the pods was pulled off and he was unaware it was infusing in his glucose readings were not in good control. Current medications: Metformin 1000 mg twice daily which he believes his ineffective Toujeo u300 95 units daily NovoLog total daily dose 200 takes up to 5 times daily typically 40- 50 units per time His sugars have been running higher this week as he ran out of TouInfoxel average glucose: 178 14 day continuous glucose monitor report reviewed Glucose Managment indicator 7.6 % Days with CGM data 100 % TIme in ranges: Eleven % very high (above 250) Thirty-three % high ?(181-250) Fifty-six % in range ?(70-180] Is a 0 % low (69-55) 0 % ?very low (below 54) 56 Standard Deviation Interpretation readings well-controlled during the day some increase in numbers in the later evening and throughout the nighttime. Two weeks prior to this his glucose average was 157 Denies family history of autoimmunity. Has retinopathy: Last eye exam 1923 stable getting eye injections was monthly, now every 3 months Has Neuropathy, sees podiatry regularly. 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 Denies nephropathy, on Lisinopril 10 mg PO daily. 05/10/2024 micro albumin 13.0 04/21/2024 eGFR>60 Has a history of HLD, and premature CAD in his father with prior [place] in his 40's. LDL 16 04/01/24 On Rosuvastatin 5 mg PO daily and also Zetia 10 mg PO daily. Has CAD and has h/o 2 stents Has attended CDE. Denies prior DKA. Denies severe hypoglycemia in the past. Also with nontoxic MNG. TR 1 with last us done 2021 with no need for f/u [facility] Medical History Vitamin D deficiency Multinodular thyroid HLD (hyperlipidemia) HTN (hypertension) T1DM (type 1 diabetes mellitus) Surgical History Hx of heart artery stent Hx of cholecystectomy History of appendectomy Family History Father Pancreatic disease CVD (cardiovascular disease) HTN (hypertension) Mother HTN (hypertension) Social History Alcohol intake: current Patient Tobacco Use Status: Never used Tobacco Physical Exam Vital Signs: Last Vital Signs Pulse 62 09/11/24 16:06 BP 120/80 09/11/24 16:06 BMI result Body Mass Index 36.9 Const Other: Absence of Cushingoid features. Absence of acromegalic features. Neck exam reveals nl size thyroid about 15 gms. No thyroid nodules palpable. Heart S1 S2, Reg R/R. No M/R G. Skin exam reveals absence of vitiligo or acanthosis nigricans. Visual exam of foot performed. Well-healed amputation of the 5th toe left foot No ulcerations or open lesions. No inter digit maceration or fissuring. No onychomycosis, no mild callous left foot lateral aspect. Sensation diminshed to monofilament exam. Vibratory sensation is diminshedl with 128 Hz tuning fork. Results AMB Hemoglobin A1c AMB Hemoglobin A1c 6.6 % Last Edit by UYEN Garcia on 09/11/24 16:29 Results Reviewed Results Reviewed: Laboratory Last Values Glucose (Clinic) 213 mg/dL (60-115) H 09/11/24 16:09 Assessment & Plan Assessment & Plan Orders: Orders AMB Glucose Monitoring Today E10.65 - Type 1 diabetes mellitus with hyperglycemia AMB Hemoglobin A1c Today E10.65 - Type 1 diabetes mellitus with hyperglycemia Medications: New insulin glargine U-300 conc (Toujeo SoloStar U-300 Insulin) 90 units (0.3 mL) subcut DAILY 9 mL 1RF 30 days insulin lispro (Humalog KwikPen U-200 Insulin) 50 units 4 times daily subcutaneously use as directed; 90 mL 3RF 90 days Discontinued insulin aspart U-100 (Novolog U-100 Insulin aspart) Discontinued Reason: Doctor's Order infuse up to 150 units per day via insulin pump subcutaneously; 50 mL 4RF Coding
[2024-09-11 16:06] VITALS: BP 120/80; PULSE 62; BMI 36.9
[2024-09-11 16:16] LABS: Glucose, Whole Blood 213 mg/dL (60-115)
== END 2024-09-11 16:46 | disposition home or self-care (01) ==
PROVIDERS: PCP Nurse Practitioner Adult Health; Visit Provider Nurse Practitioner Adult Health
DX: E10.65 Type 1 diabetes mellitus with hyperglycemia (principal)

== ENCOUNTER → 2024-09-11 15:54 | Outpatient (BNVA) | payer BC, SELFPAY | PROVIDERS: PCP Nurse Practitioner Adult Health; Visit Provider Nurse Practitioner Adult Health | DX: E10.65 Type 1 diabetes mellitus with hyperglycemia (principal) | CPT/HCPCS: 82947; 83036 ==

== ENCOUNTER 2024-12-12 13:44 | Outpatient (AMB) | payer BC, SELFPAY ==
--- NOTE | 2024-12-12 08:54 | A.OFFVIS_ITS ---
Vital Signs 12/12/24 13:49 Height 5 ft 7 in Weight 233 lb 11.04 oz BMI 36.6 BP 150/82 H Blood Pressure Location Rt brachial Position Sitting Pulse 65 Pulse Source Pulse Oximeter Intake Visit Reasons: F/U T1DM Intake Note: Patient presents today for a follow-up on Type 1 Diabetes Mellitus: Last Diabetic eye exam was on: 07/09/2024 Last Podiatry exam was on: 09/09/2024 Most recent HbA1c: 7.9%, 12/12/2024 Random Glucose- 129 mg/dL, Today Data Center Operator Required: No Accompanied by: Self / Same As Patient Allergies niacin [Niaspan Extended-Release] Allergy (Severe, Verified 12/12/24 13:49) Itching morhine Allergy (Unknown, Uncoded 12/12/24 13:49) Hallucinations Statin Adverse Reaction (Unknown, Uncoded 12/12/24 13:49) Muscle pain HPI Comments Details: 49 year-old male with a past medical history of type 1 diabetes, nontoxic multinodular goiter who is seen in follow-up today for the same. He was last seen 09/11/24. 12/12/24 7.9% 09/11/2024 A1c 6.6%, previous 7.2%. Diagnosed with type 1 diabetes in 1997. Developed Pancreatitis in 2014 and has subsequently had 2 pancreatic pseudocysts. Started Omniopod 5 in March 2024 and did not have success with this. He had multiple times when the pods was pulled off and he was unaware it was infusing and his glucose readings were not in good control. Current medications: Metformin 1000 mg twice daily he stopped for one week due to running out and went to 300 basaglar 90-95 units daily NovoLog total daily dose 50 units 4-5 times per day HIs girlfriend reports he is often injecting after the meal Dexcom average glucose: 170 14 day continuous glucose monitor report reviewed Glucose Managment indicator 7.4 % Days with CGM data 95 % TIme in ranges: 10 % very high (above 250) 30 % high ?(181-250) 60 % in range ?(70-180] 0 % low (69-55) Less than 1 % ?very low (below 54) 54 some postprandial highs after lunch and supper and slight elevation is sugar overnight Overall running 20 points higher than target Interpretation readings well-controlled during the day some increase in numbers in the later evening and throughout the nighttime. Two weeks prior to this his glucose average was 157 Denies family history of autoimmunity. Has retinopathy: Has appt next week was getting eye injections was monthly, now every 3 months Has Neuropathy, numbness and tingling, some pain, stabbing pain, near where the 5th digit was amputated, sees podiatry regularly. 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 is on gabapentin and a compounded neuropathy cream Denies nephropathy, on Lisinopril 10 mg PO daily. 05/10/2024 micro albumin 13.0 04/21/2024 eGFR>60 Has a history of HLD, and premature CAD in his father with prior [place] in his 40's. LDL 16 04/01/24 On Rosuvastatin 5 mg PO daily and also Zetia 10 mg PO daily. Has CAD and has h/o 2 [id number] sees cardiology every 3 months Has attended CDE. Denies prior DKA. Denies severe hypoglycemia in the past. Also with nontoxic MNG. TR 1 with last us done 2021 with no need for f/u [facility] Medical History (Updated 12/12/24 @ 14:30 by Tamara Rogers NP) Neuropathy Vitamin D deficiency Multinodular thyroid HLD (hyperlipidemia) HTN (hypertension) T1DM (type 1 diabetes mellitus) Surgical History Hx of heart artery stent Hx of cholecystectomy History of appendectomy Family History Father Pancreatic disease CVD (cardiovascular disease) HTN (hypertension) Mother HTN (hypertension) Social History Alcohol intake: current Patient Tobacco Use Status: Never used Tobacco Physical Exam Vital Signs: Last Vital Signs Pulse 65 12/12/24 13:49 BP 150/82 H 12/12/24 13:49 BMI result Body Mass Index 36.6 Const Other: Absence of Cushingoid features. Absence of acromegalic features. Neck exam reveals nl size thyroid about 15 gms. No thyroid nodules palpable. No carotid bruits present. Lungs CTA. Heart S1 S2, Reg R/R. No M/R G. Skin exam reveals absence of vitiligo or acanthosis nigricans. No edema foot exam deferred today, saw podiatry last week Office Procedures Glucose Monitoring Details Details: see [facility] [id number] - Glucose monitoring, continuous-physician I&R Procedure code (CPT) selection complete Results AMB Hemoglobin A1c AMB Hemoglobin A1c 7.9 % Last Edit by UYEN Gacria on 12/12/24 14:20 Results Reviewed Results Reviewed: Laboratory Last Values Glucose (Clinic) 129 mg/dL (60-115) H 12/12/24 13:59 Assessment & Plan Assessment & Plan (1) T1DM (type 1 diabetes mellitus): Code(s): E10.9 - Type 1 diabetes mellitus without complications Category: Medical Qualifiers: Diabetes mellitus complication status: with hyperglycemia Qualified Code(s): E10.65 - Type 1 diabetes mellitus with hyperglycemia Plan: 49-year-old type 1 diabetic on basal bolus insulin with increasing A1C of 7.9%. Increase basaglar to 95 units dose insulin before the meal call in a few weeks for insulin adjustment if numbers still running higher reduce portions The patient had an opportunity to ask questions regarding treatment plan. The patient expressed understanding and agreement with the above treatment plan. The patient is aware they should contact our office by phone for worsening glucose readings or for any low blood sugars which may warrant a change in diabetes medication. Compliance is encouraged with medications and any followup testing/consults which may have been ordered. (2) Neuropathy: Code(s): G62.9 - Polyneuropathy, unspecified Category: Medical Plan: Neuropathy is primarily at the site of his 5th toe amputation. He is followed by podiatry and is on gabapentin and compounded cream along with lidocaine. He was asked to discuss lyrica with his child life specialist. Orders: Orders AMB Hemoglobin A1c Today E10.65 - Type 1 diabetes mellitus with hyperglycemia AMB Glucose Monitoring Today E10.65 - Type 1 diabetes mellitus with hyperglycemia Patient Instructions: The patient was counseled to achieve a target A1C of 7% (154 avg). Fasting blood sugars should be 90-130 in the morning and less than 180 two hours after meals. Reviewed the relationship between poor diabetic control and the development of complications. Coding Level of Care Code Est Pt Level 5 (44830) Complex EM visit Add On G2211 Diagnoses Type 1 diabetes mellitus with hyperglycemia E10.65 Diabetes mellitus complication status: with hyperglycemia Neuropathy G62.9 CPT Codes Details - CPT: 66842 - Glucose monitoring, continuous-physician I&R ([id number]) Time Spent (min) 40 Comment Time spent reviewing labs/provider notes, glucose,sensor reports, face to face, chart doc
--- OUTSIDE RECORDS SUMMARY | 2024-12-12 13:47 | XMS_ITS | Continuity of Care Document ---
Author Organization [facility] Address [address] [place] [address]- Care Team Providers Care Dispatcher Chief Coal Slurry Name Role Phone Chavez ZAMORA, Neelam Mcgee Primary Care Physician Encounter [facility] Date(s): 10/24/24 - 11/23/24 [facility] [address], [place] [address] Encounter Type: Triage Allergies, Adverse Reactions, Alerts Substance Criticality Severity Reaction Reaction Severity Status morphine hallucinations Activ e Niaspan ER itching Active statins Muscle pain Active Immunizations Given and Recorded Vaccine Date Status Refusal Reason zoster vaccine, inactivated 05/25/23 Recorded influenza virus vaccine, inactivated 08/23/22 Marvin rded influenza virus vaccine, inactivated 08/31/21 Marvin rded pneumococcal 13-valent vaccine 10/18/19 Recorded pneumococcal 13-valent vaccine 06/15/15 Recorded pneumococcal 23-valent vaccine 08/02/11 Recorded Medications aspirin 81 mg oral delayed release tablet 81 mg, 1, tablet, By Mouth, Daily, # 90 tablet, Refills 3, Tot. Refills 3, Maintenance, 01/24/23 1:39:00 PM EDT, Route to Pharmacy Electronically, [facility], Partial fill upon patient request if the prescription is for a schedule II opioid drug., 168, cm, 05/08/22 16:22:00 EDT, Height, 103, kg, 05/05/22 21:50:00 EDT, Dry Weight Start Date: 01/24/23 Status: Ordered Quantity: 90.0 Unit: tablet Repeat number: 4 Michele Youngblood 100 units/mL subcutaneous solution = 90 units, Daily, INJECT 90 UNITS SUBCUTANEOUSLY DAILY Start Date: 11/04/24 Status: Ordered Repeat number: 1 CoQ10 100 mg oral capsule 1 capsule = 100 mg, By Mouth, Daily, 0 Refills, Maintenance, 01/24/23 8:52:00 AM EDT, Partial fill upon patient request if the prescription is for a schedule II opioid drug. Start Date: 01/24/23 Status: Ordered Repeat number: 1 fenofibrate 150 mg oral capsule 30 each, 0 Refill(s), TAKE 1 CAPSULE DAILY, 0 Refills, 10/28/24 9:56:00 AM EST, Partial fill upon patient request if the prescription is for a schedule II opioid drug. Start Date: 10/28/24 Status: Ordered Repeat number: 1 FLUoxetine 40 mg oral capsule 1 capsule = 40 mg, By Mouth, Daily, # 90 capsule, 1 Refills, Maintenance, 11/04/24 11:44:00 AM EST, Capsule, [facility] 1967, Partial fill upon patient request if the prescription is for a schedule II opioid drug., 168, cm, 11/04/24 11:14:00 EST, Height, 100, kg, 06/17/23 1:15:00 EDT, Dry Weight Start Date: 11/04/24 Status: Ordered Quantity: 90.0 Unit: capsule Repeat number: 2 Forefoot offloading shoe Forefoot offloading shoe, See Instructions, # 1 each, Refills 0, Tot. Refills 0, Maintenance, Dx: right foot great toe ulcer, DM, 02/16/20 3:12:00 PM EDT, Supply Start Date: 02/16/20 Status: Ordered Quantity: 1.0 Unit: each Repeat number: 1 furosemide 20 mg oral tablet 90 each, 0 Refill(s), TAKE 1 TABLET BY MOUTH ONCE DAILY, Refills 0, 10/28/24 9:56:00 AM EST, Partial fill upon patient request if the prescription is for a schedule II opioid drug. Start Date: 10/28/24 Status: Ordered Repeat number: 1 gabapentin 400 mg oral capsule 1,200 mg, 3, capsule, By Mouth, 3 times a day, # 270 capsule, Refills 1, Tot. Refills 1, Maintenance, 10/24/24 1:31:00 PM EST, Route to Pharmacy Electronically, [facility] 1966, Partial fill upon patient request if the prescription is for a schedule II opioid drug., 168, cm, 06/17/23 1:15:00 EDT, Height, 100, kg, 06/17/23 1:15:00 EDT, Dry Weight Start Date: 10/24/24 Stop Date: 12/23/24 Status: Ordered Quantity: 270.0 Unit: capsule Repeat number: 2 Gauze Pad (4 X 4) See Instructions, # 1 box, Maintenance, use as directed, 08/19/19 9:19:31 AM EDT, Compound Start Date: 08/19/19 Status: Ordered Quantity: 1.0 Unit: box Repeat number: 1 Humalog 100 u/ml subcutaneous injection = 1 units, Subcutaneous Infusion, 0 Refills, Maintenance, 10/28/24 9:59:00 AM EST, Partial fill upon patient request if the prescription is for a schedule II opioid drug. Start Date: 10/28/24 Status: Ordered Repeat number: 1 nyla roll nyla roll, See Instructions, # 1 box, Refills 5, Tot. Refills 5, Maintenance, nyla roll use Daily, 08/19/19 9:20:27 AM EDT, Compound Start Date: 08/19/19 Status: Ordered Quantity: 1.0 Unit: box Repeat number: 6 lamotrigine 100 mg oral tablet 100 mg, 1, tablet, By Mouth, 2 times a day, # 180 tablet, Refills 4, Tot. Refills 4, Maintenance, 01/15/24 4:59:00 PM EDT, Route to Pharmacy Electronically, [facility] 1966, Partial fill upon patient request if the prescription is for a schedule II opioid drug., 168, cm, 06/17/23 1:15:00 EDT, H eight, 100, kg, 06/17/23 1:15:00 EDT, Dry Weight Start Date: 01/15/24 Stop Date: 04/09/25 Status: Ordered Quantity: 180.0 Unit: tablet Repeat number: 5 lisinopril 20 mg oral tablet 20 mg, 1, tablet, By Mouth, Daily, # 90 tablet, Refills 0, Maintenance, 05/06/22 5:30:00 AM EDT, Partial fill upon patient request if the prescription is for a schedule II opioid drug. Start Date: 05/06/22 Status: Ordered Quantity: 90.0 Unit: tablet Repeat number: 1 loratadine 10 mg oral tablet 10 mg, 1, tablet, By Mouth, Daily, # 90 tablet, Refills 0, Maintenance, 05/06/22 5:29:00 AM EDT, Partial fill upon patient request if the prescription is for a schedule II opioid drug. Start Date: 05/06/22 Status: Ordered Quantity: 90.0 Unit: tablet Repeat number: 1 metFORMIN 500 mg oral tablet = 1,000 mg, By Mouth, 2 times a day with meals, # 360 tablet, 1 Refills, Maintenance, 11/04/24 11:44:00 AM EST, Tablet, Pending [facility] To [facility] 1967, Partial fill upon patient request if the prescription is for a schedule II opioid drug., 168, cm, 11/04/24 11:14:00 EST, Height, 100, kg, 06/17/23 1:15:00 EDT, Dry Weight Start Date: 11/04/24 Status: Ordered Quantity: 360.0 Unit: tablet Repeat number: 2 rosuvastatin 5 mg oral tablet 1 tablet = 5 mg, By Mouth, Daily, 0 Refills, Maintenance, 01/24/23 8:52:00 AM EDT, Partial fill uponpatient request if the prescription is for a schedule II opioid drug. Start Date: 01/24/23 Status: Ordered Repeat number: 1 Tylenol 325 mg oral tablet 650 mg, By Mouth, Every 4 hours, PRN, Refills 0, Maintenance, Pain , Mild, 09/15/19 10:33:22 AM EST Start Date: 09/15/19 Status: Ordered Repeat number: 1 Vitamin D3 2000 intl units oral capsule 1 capsule = 50 mcg, By Mouth, Daily, # 60 capsule, 0 Refills, Maintenance, 05/06/22 5:31:00 AM EDT, Capsule, Partial fill upon patient request if the prescription is for a schedule II opioid drug. Start Date: 05/06/22 Status: Ordered Quantity: 60.0 Unit: capsule Repeat number: 1 Problem List Condition Confirmation Course Effective Dates Status Health Status Informant History of acute pancreatitis Confirmed Active Amputation of fifth toe of left foot 1, 2 Confirmed 07/31/19 Active BPH (benign prostatic hyperplasia) Confirmed Active Bulging of cervical intervertebral disc Confirmed Active Congestive heart failure Confirmed Active Coronary artery disease Confirmed Active Erectile dysfunction Confirmed Active HTN (hypertension) Confirmed Active Hypertriglyceridemia Confirmed Active DJD (degenerative joint disease), lumbar Confirmed Active Moderate depressive disorder Confirmed Active NICOLASA on CPAP Confirmed Active Percutaneous transluminal coronary angioplasty status Confirmed Active Peripheral neuropathy Confirmed Active Pancreatic pseudocyst Confirmed Active Diabetic retinopathy Confirmed Active Severe obesity (BMI 35.0-39.9) with comorbidity Confirmed Active Type 2 diabetes mellitus with retinopathy Confirmed Active Type 2 diabetes mellitus with peripheral neuropathy Confirmed Active Type 2 diabetes mellitus with peripheral artery disease Confirmed Active 12/2 Osteomyelitis 2per vascular surgery note.07/2019 left fifth toe amputation for acute osteomyelitis of the left fifth toe on 07/31/[address] Carrillo. Social History Social History Type Response Smoking Status Never (less than 100 in lifetime) entered on: 09/08/19 Sex Sex Representation Male (finding) Patient Care team information Care Team Personnel Name: Sheron Harper RN Position: [facility] RN Member Role: Primary Care Nurse Name: Magaly Bach RN Position: [facility] RN Member Role: Primary Care Nurse Name: Jason Camargo RN Position: [facility] RN Member Role: Primary Care Nurse Name: Neelam Byrne MD Position: [facility] Physician - Primary Care Member Role: PCP Address: [address] [place] [address] [place] [address] DS Telecom: Name: Karen Diane NP Position: [facility] PCO Associate Professional Member Role: Primary Care Nurse Address: [address] [place] [id number]- [phone] Telecom: Name: Vero Whiting RN Position: [facility] RN Member Role: Primary Care Nurse Name: Anna Chris RN Position: [facility] RN Member Role: Primary Care Nurse Name: Beth Curiel Position: [facility] Outreach Member Role: [employer] Consulting Physician Name: Maria Esther Stanley RN Position: [facility] RN Member Role: Primary Care Nurse Care Team Related Persons Name: ANGELA GUIDO Name: ZHANG GUIDO Name: DEBBI GUIDO Insurance Providers Guarantor name: [facility] [employer] [facility] Information #: 1 Payer: [employer] Member Number: NA Policy Number: NA Group Number: NA
--- OUTSIDE RECORDS SUMMARY | 2024-12-12 13:47 | XMS_ITS ---
Author Organization [facility] Address [address] [facility] [address] [place] [address] Care Team Providers Care Lcsw Name Role Phone YING STEVENSON Primary Care Provider YING STEVENSON Unavailable [phone] VICENTE ALEXANDER [phone] REASON FOR VISIT Annual Physical Encounters Encounter Location Date Provider Diagnosis [facility] [address] [facility] [address] [place] [address] 10/15/2023 VICENTE ALEXANDER Plan Of Treatment No Information Progress Notes * Ron HOLMANDOB: [birth year] (49 yo M)Acc No.[id number]:10/15/2023 Progress Notes Patient:?Ron HOLMAN Provider:?Vicente Alexander MD :1975???Age:48 Y???Sex:Male Meek e:10/15/2023 Address:[address] [place] [address] [facility] Pcp:YING Hu Subjective: * Chief Complaints: * ???1. Annual Physical. * Medical History:? * Ocular Surgical History:? Objective: * Vitals:? Assessment: Plan: * Treatment: Care Plan: * Problems:? * Billing Information: * Visit Code:? * Procedure Codes:? Care Plan Details* * Electronic signature of LUIS ALFREDO ALEXANDER MD on 12/12/2024 at 01:47 PM EST Sign off status: Pending * Provider:?Vicente Alexander MD Date:?2022 Generated for Manasa cantrell/Fco/Mohan on:?12/12/2024 01:47 PM EST
--- OUTSIDE RECORDS SUMMARY | 2024-12-12 13:47 | XMS_ITS ---
Author Organization [facility] Address [address] [facility] [address] [place] [address] Care Team Providers Care Calender Wind Up Tender Name Role Phone YING STEVENSON Primary Care Provider YING STEVENSON Unavailable [phone] REASON FOR VISIT refill Medications Medication SIG (Take, Route, Fr equency, Duration) Notes Start Date End Date Status metFORMIN HCl 1000 MG TAKE 1 TABLET BY M OUTH TWICE DAILY WITH MEALS for 90 days Act dori Encounters Encounter Location Date Provider Diagnosis [facility] [address] [facility] [address] [place] [address] 10/01/2023 YING STEVENSON Plan Of Treatment Medication Medication Name Sig Start Date Stop Date Notes metFORMIN HCl 1000 MG TAKE 1 TABLET BY M OUTH TWICE DAILY WITH MEALS for 90 days Progress Notes * Ron HOLMANDOB: [birth year] (48 yo M)Acc No.[id number]:10/01/2023 Patient:?Ron Holman :1975???Age:48 Y???Sex:Male Address:[place], [address] * Refills? Refill metFORMIN HCl Tablet, 1000 MG, 180, TAKE 1 TABLET BY MOUTH TWICE DAILY WITH MEALS, 90 days, Refills=3 * true * Date:? Generated for Printi ng/Fadenisg/eTransmitting on:?12/12/2024 01:47 PM EST
--- OUTSIDE RECORDS SUMMARY | 2024-12-12 13:47 | XMS_ITS ---
Author Organization [facility] Address [address] [facility] [address] [place] [address] Care Team Providers Care Development Associate Name Role Phone YING STEVENSON Primary Care Provider YING STEVENSON Unavailable [phone] REASON FOR VISIT refill Medications Medication SIG (Take, Route, Fr equency, Duration) Notes Start Date End Date Status Carvedilol 25 MG 1 tablet with food O rally Twice a day for 90 days Active Encounters Encounter Location Date Provider Diagnosis [facility] [address] [facility] [address] [place] [address] 09/02/2023 YING STEVENSON Plan Of Treatment Medication Medication Name Sig Start Date Stop Date Notes Carvedilol 25 MG 1 tablet with food O rally Twice a day for 90 days Progress Notes * Ron HOLMANDOB: [birth year] (48 yo M)Acc No.[id number]:09/02/2023 Patient:?Ron Holman :1975???Age:48 Y???Sex:Male Address:[place], [address] * Refills? Refill Carvedilol Tablet, 25 MG, Orally, 180 Tablet, 1 tablet with food, Twice a day, 90 days, Refills=3 * true * Date:? Generated for Printi ng/Fadenisg/eTransmitting on:?12/12/2024 01:47 PM EST
[2024-12-12 13:49] VITALS: BP 150/82; PULSE 65; BMI 36.6
[2024-12-12 14:03] LABS: Glucose, Whole Blood 129 mg/dL (60-115)
== END 2024-12-12 14:25 | disposition home or self-care (01) ==
PROVIDERS: PCP Nurse Practitioner Adult Health; Visit Provider Nurse Practitioner Adult Health
DX: E10.65 Type 1 diabetes mellitus with hyperglycemia (principal); E10.21 Type 1 diabetes mellitus with diabetic nephropathy; G62.9 Polyneuropathy, unspecified
CPT/HCPCS: 95251; 99215

== ENCOUNTER → 2024-12-12 13:44 | Outpatient (BNVA) | payer BC, SELFPAY | PROVIDERS: PCP Nurse Practitioner Adult Health; Visit Provider Nurse Practitioner Adult Health | DX: E10.65 Type 1 diabetes mellitus with hyperglycemia (principal); E10.40 Type 1 diabetes mellitus with diabetic neuropathy, unspecified | CPT/HCPCS: 82947; 83036 ==

== ENCOUNTER 2025-04-08 14:38 | Outpatient (AMB) | payer BC, SELFPAY ==
[2025-04-08 14:43] VITALS: BP 130/80; PULSE 71; O2SAT 97; BMI 36.6
--- NOTE | 2025-04-08 14:43 | A.OFFVIS_ITS ---
Vital Signs 04/08/25 14:43 Height 5 ft 7 in Weight 233 lb 11.04 oz BMI 36.6 BP 130/80 Blood Pressure Location Rt brachial Position Sitting Pulse 71 Pulse Source Pulse Oximeter Pulse Oximetry (%) 97 Oxygen Delivery Method Room Air Intake Visit Reasons: T1DM Intake Note: Patient presents today for a follow-up on Type 1 Diabetes Mellitus: Last Diabetic eye exam was on: 07/09/2024 Last Podiatry exam was on: 09/09/2024 Most recent HbA1c: 7.0%, 04/09/2025 Random Glucose- 133 mg/dL, Today Production Controller Required: No Accompanied by: Self / Same As Patient Allergies niacin [Niaspan Extended-Release] Allergy (Severe, Verified 04/08/25 14:44) Itching morhine Allergy (Unknown, Uncoded 04/08/25 14:44) Hallucinations Statin Adverse Reaction (Unknown, Uncoded 04/08/25 14:44) Muscle pain Medication List - Last Reconciled 04/10/25 by Tamara Rogers NP aspirin 81 mg PO DAILY Basaglar KwikPen U-100 Insulin (insulin glargine) 95 units (0.95 mL) subcut DAILY 90 days NS blood-glucose sensor (Dexcom G6 Sensor device) As directed change every 10 days blood-glucose sensor (Dexcom G6 Sensor device) As directed change every 10 days blood-glucose transmitter (Dexcom G6 Transmitter device) USE every 90 days carvedilol 25 mg PO BID cholecalciferol (vitamin D3) 50 mcg PO DAILY 30 days coQ10 (ubiquinol) (Qunol Tigre CoQ10) 200 mg PO DAILY ezetimibe 10 mg PO DAILY fenofibrate 150 mg PO DAILY fluoxetine 40 mg PO DAILY furosemide 20 mg PO DAILY gabapentin 1,200 mg PO QID glucagon 3 mg/actuation (Baqsimi) 3 mg intranasal ONCE insulin lispro (Humalog KwikPen U-200 Insulin) 50 units 4 times daily subcutaneously use as directed; 90 days insulin pump cart,auto,BT-cntr (Omnipod 5 G6 Intro Kit (Gen 5) subcutaneous cartridge with controller) As directed insulin pump cart,automated,BT (Omnipod 5 G6 Pods (Gen 5) subcutaneous cartridge) As directed change every 48 hrs lamotrigine 100 mg PO DAILY lisinopril 20 mg PO DAILY loratadine 10 mg PO DAILY magnesium hydroxide (Dulcolax (magnesium hydroxide)) 400 mg PO DAILY PRN metformin 1,000 mg PO BID pen needle, diabetic (Comfort EZ Pen Peotone) As directed rosuvastatin 40 mg PO DAILY 30 days ticagrelor (Brilinta) 90 mg PO BID HPI Comments Details: 49 year-old male with a past medical history of type 1 diabetes, nontoxic multinodular goiter who is seen in follow-up today for the same. He was last seen 12/12/24. HgbA1C 04/10/25:7.0% 12/12/24 7.9% Diagnosed with type 1 diabetes in 1997. Developed Pancreatitis in 2014 and has subsequently had 2 pancreatic pseudocysts. Started Omniopod 5 in March 2024 and did not have success with this. He had multiple times when the pods was pulled off and he was unaware it was infusing and his glucose readings were not in good control. Current medications: basaglar 95 units daily NovoLog total daily dose 50 units 4tim es per day Dexcom average glucose: 153 14 day continuous glucose monitor report reviewed Glucose Managment indicator 7.0 % Days with CGM data 86 % TIme in ranges: 4 % very high (above 250) 23 % high ?(181-250) 72 % in range ?(70-180] 1 % low (69-55) 0 % ?very low (below 54) Interpretation well-controlled without hypoglycemia Denies family history of autoimmunity. Has retinopathy: Has appt next week was getting eye injections was monthly, now every 3 months Has Neuropathy, numbness and tingling, some pain, stabbing pain, near where the 5th digit was amputated, sees podiatry regularly. 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 is on gabapentin and a compounded neuropathy cream Denies nephropathy, on Lisinopril 10 mg PO daily. 05/10/2024 micro albumin 13.0 04/21/2024 eGFR>60 Has a history of HLD, and premature CAD in his father with prior [place] in his 40's. LDL 16 04/01/24 On Rosuvastatin 5 mg PO daily and also Zetia 10 mg PO daily. Has CAD and has h/o 2 [id number] sees cardiology every 3 months Has attended [facility]. Denies prior DKA. Denies severe hypoglycemia in the past. Also with nontoxic MNG. TR 1 with last us done 2021 with no need for f/u PFS Medical History (Updated 12/12/24 @ 14:30 by Tamara Rogers NP) Neuropathy Vitamin D deficiency Multinodular thyroid HLD (hyperlipidemia) HTN (hypertension) T1DM (type 1 diabetes mellitus) Surgical History Hx of heart artery stent Hx of cholecystectomy History of appendectomy Family History Father Pancreatic disease CVD (cardiovascular disease) HTN (hypertension) Mother HTN (hypertension) Social History Alcohol intake: current Patient Tobacco Use Status: Never used Tobacco Physical Exam Vital Signs: Last Vital Signs Pulse 71 04/08/25 14:43 BP 130/80 04/08/25 14:43 Pulse Ox 97 04/08/25 14:43 Oxygen Delivery Method Room Air 04/08/25 14:43 BMI result Body Mass Index 36.6 Const Other: Absence of Cushingoid features. Absence of acromegalic features. Neck exam reveals nl size thyroid about 15 gms. No thyroid nodules palpable. Heart S1 S2, Reg R/R. No M/R G. Skin exam reveals absence of vitiligo or acanthosis nigricans. No edema Visual exam of foot performed. No ulcerations or open lesions. No inter digit maceration or fissuring. 5th toe amputation.Sensation intact to monofilament exam. Vibratory sensation is normal with 128 Hz tuning fork. Results AMB Hemoglobin A1c AMB Hemoglobin A1c 7.0 % Last Edit by UYEN Garcia on 04/08/25 15:00 Results Reviewed Results Reviewed: Laboratory Last Values Glucose (Clinic) 133 mg/dL (60-115) H 04/08/25 14:51 Hgb A1c (Clinic) 7.0 % (4.0-6.0) H 04/08/25 14:45 Assessment & Plan Assessment & Plan (1) T1DM (type 1 diabetes mellitus): Code(s): E10.9 - Type 1 diabetes mellitus without complications Category: Medical Qualifiers: Diabetes mellitus complication status: with hyperglycemia Qualified Code(s): E10.65 - Type 1 diabetes mellitus with hyperglycemia Plan: 49-year-old type 1 diabetic with retinopathy and neuropathy followed by Podiatry with the an A1c of 7%. Continue current dosing Patient was encouraged to f/u with pod and opth on a regular basis. The patient had an opportunity to ask questions regarding treatment plan. The patient expressed understanding and agreement with the above treatment plan. The patient is aware they should contact our office by phone for worsening glucose readings or for any low blood sugars which may warrant a change in diabetes medication. Compliance is encouraged with medications and any followup testing/consults which may have been ordered. Orders: Orders Basic Metabolic Panel Today E10.65 - Type 1 diabetes mellitus with hyperglycemia Lipid Panel Today E10.65 - Type 1 diabetes mellitus with hyperglycemia AMB Hemoglobin A1c 04/08/25 E10.65 - Type 1 diabetes mellitus with hyperglycemia Microalbumin, Random (w Creat) Today E10.65 - Type 1 diabetes mellitus with hyperglycemia Creatinine Urine Today E10.65 - Type 1 diabetes mellitus with hyperglycemia Medications: Refilled insulin lispro (Humalog KwikPen U-200 Insulin) 50 units 4 times daily subcutaneously use as directed; 90 days 90 mL 3RF Discontinued insulin pump cart,auto,BT-cntr (Omnipod 5 G6 Intro Kit (Gen 5) subcutaneous cartridge with controller) Discontinued Reason: Doctor's Order As directed 1 ea 0RF insulin pump cart,automated,BT (Omnipod 5 G6 Pods (Gen 5) subcutaneous cartridge) Discontinued Reason: Doctor's Order As directed change every 48 hrs 5 ea 5RF Patient Instructions: Check your feet daily looking for any signs of infection, drainage, redness, ulceration and seek medical attention if this occurs. Break in shoes gradually and do not wear open-toed shoes or walk stocking footed or barefooted. The patient was counseled to achieve a target A1C of 7% (154 avg). Fasting blood sugars should be 90-130 in the morning and less than 180 two hours after meals. Reviewed the relationship between poor diabetic control and the development of complications. Carry a sugar source at all times Coding Level of Care Code Est Pt Level 4 (87556) Complex EM visit Add On G2211 Diagnoses Type 1 diabetes mellitus with hyperglycemia E10.65 Diabetes mellitus complication status: with hyperglycemia Time Spent (min) 30 Comment Time spent reviewing labs/provider notes, face to face, chart doc
[2025-04-08 14:56] LABS: Glucose, Whole Blood 133 mg/dL (60-115)
--- OUTSIDE RECORDS SUMMARY | 2025-04-08 16:49 | XMS_ITS ---
Author Organization [facility] Address [address] [place] [address] Care Team Providers Care Social Welfare Clerk Name Role Phone Vicente Alexander Primary Care Provider Bettina Mendoza [phone] Encounters Encounter Location Date Provider Diagnosis [address] [address] 03/20/2025 Bettina Rocha Plan Of Treatment Next Appt Details Provider Name:Bettina Curtis Rocha , 05/26/2025 03:15:00 PM, [address] [place] [address], [phone], Progress Notes * Irineo HOLMANOB: 3 (49 yo M)Acc No.[id number]:03/20/2025 Progress Note Patient:?RIVER Ron Provider:?Bettina Rocha DPM :1975???Age:49 Y???Sex:Male Meek e:03/20/2025 Address[address] [id number] Pcp:Vicente Alexander Subjective: * Chief Complaints: * ??? * Medical History:? Objective: * Vitals:? Assessment: Plan: * Treatment: * Images: * The named appointment provid er may or may not be the originator of this progress note, and it is not deemed complete until electronically signed by the appointment provider. Sign off status: Pending * Provider:David Rocha DPM Date:?2024 Generated for Manasa cantrell/Fco/Mohan on:?04/08/2025 04:48 PM EDT
== END 2025-04-08 15:32 | disposition home or self-care (01) ==
LOC: HO.ENCR 14:38
PROVIDERS: PCP Nurse Practitioner Adult Health; Visit Provider Nurse Practitioner Adult Health
DX: E10.65 Type 1 diabetes mellitus with hyperglycemia (principal)

== ENCOUNTER → 2025-04-08 14:38 | Outpatient (BNVA) | payer BC, SELFPAY | PROVIDERS: PCP Nurse Practitioner Adult Health; Visit Provider Nurse Practitioner Adult Health | DX: E10.65 Type 1 diabetes mellitus with hyperglycemia (principal); E10.319 Type 1 diabetes mellitus with unspecified diabetic retinopathy without macular edema; E10.40 Type 1 diabetes mellitus with diabetic neuropathy, unspecified; E04.2 Nontoxic multinodular goiter; I25.10 Atherosclerotic heart disease of native coronary artery without angina pectoris; I10 Essential (primary) hypertension; Z95.5 Presence of coronary angioplasty implant and graft; Z79.4 Long term (current) use of insulin | CPT/HCPCS: 82947; 83036 ==

== ENCOUNTER 2025-07-09 14:53 | Outpatient (REF) | payer BC, SELFPAY ==
[2025-07-09 18:11] LABS: Anion Gap 16 (12-20); Blood Urea Nitrogen 18 mg/dL (9-16); Calcium 10.7 mg/dL (8.4-10.2); Carbon Dioxide 27 mmol/L (22-29); Chloride 105 mmol/L (96-108); Cholesterol 171 mg/dL (<200); Estimated Glomerular Filt Rate > 60; HDL Cholesterol 35 mg/dL (>40); Potassium 5.1 mmol/L (3.3-5.1); Sodium 143 mmol/L (135-145); Triglycerides 320 mg/dL (<150)
== END 2025-07-09 14:54 | disposition home or self-care (01) ==
LOC: HO.LAB 14:53
PROVIDERS: PCP Internal Medicine; Visit Provider Student in an Organized Health Care Education/Training Program
DX: E10.65 Type 1 diabetes mellitus with hyperglycemia (principal); E10.69 Type 1 diabetes mellitus with other specified complication; E78.5 Hyperlipidemia, unspecified; Z79.82 Long term (current) use of aspirin; Z79.4 Long term (current) use of insulin; Z79.84 Long term (current) use of oral hypoglycemic drugs
CPT/HCPCS: 36415; 80048; 80061; 82947; 83036; 84443; 84681; 86341

== ENCOUNTER 2025-07-09 14:53 | Outpatient (AMB) | payer BC, SELFPAY ==
--- OUTSIDE RECORDS SUMMARY | 2025-03-20 10:00 | XMS_ITS ---
Author Organization [facility] Address [address] [place] [address] Care Team Providers Care Manager Environmental Health And Safety Name Role Phone Neelam Byrne Primary Care Provider Bettina Mendoza [phone] Encounters Encounter Location Date Provider Diagnosis [address] [address] 03/20/2025 Bettina Rocha Plan Of Treatment Next Appt Details Provider Name:Bettina Rocha , 08/25/2025 03:30:00 PM, [address] [place] [address], [phone], Progress Notes * Irineo HOLMANOB: 3 (50 yo M)Acc No.[id number]:03/20/2025 Progress Note Patient: Ron JOSE Provider: Angely Rocha DPM :1975 A ge:49 Y S ex:Male Date:03/20/2025 Address:[address] [place] [id number] Pcp:Neelam Byrne Subjective: * Chief Complaints: * * Medical History: Objective: * Vitals: Assessment: Plan: * Treatment: * Images: * The named appointment provid er may or may not be the originator of this progress note, and it is not deemed complete until electronically signed by the appointment provider. Sign off status: Pending * Provider: Angely Rocha DPM Date: 0 03/20/2025 Generated for Manasa cantrell/Fco/Mohan on: 0 07/09/2025 06:22 PM EDT
[2025-07-09 15:01] VITALS: BP 158/82; PULSE 71; O2SAT 97; BMI 35.7
--- NOTE | 2025-07-09 15:01 | A.OFFVIS_ITS ---
Vital Signs 3 07/09/25 15:01 Height 5 ft 7 in Weight 227 lb 11.8 oz BMI 35.7 BP 158/82 H Blood Pressure Location Lt brachial Position Sitting Pulse 71 Pulse Source Pulse Oximeter Pulse Oximetry (%) 97 Oxygen Delivery Method Room Air Intake Visit Reasons: T1DM Intake Note: Patient present today for Type 1 Diabetes Mellitus Last Diabetic eye exam: Last exam was April 2025 Last Podiatry Visit: Last seen in Random Glucose: 145 mg/dl HgA1C: 6.7% Print Line Feeder Required: No Accompanied by: Self / Same As Patient Allergies niacin (Niaspan Extended-Release) Allergy (Severe, Verified 07/09/25 15:06) Itching morhine Allergy (Unknown, Uncoded 07/09/25 15:06) Hallucinations Statin Adverse Reaction (Unknown, Uncoded 07/09/25 15:06) Muscle pain Medication List - Last Reconciled 07/09/25 by Kenna Vásquez MD aspirin 81 mg PO DAILY Basaglar KwikPen U-100 Insulin (insulin glargine) 95 units (0.95 mL) subcut DAILY 90 days NS blood-glucose sensor (Dexcom G6 Sensor device) USE DIRECTED, CHANGE EVERY 10 DAYS blood-glucose sensor (Dexcom G6 Sensor device) As directed change every 10 days blood-glucose transmitter (Dexcom G6 Transmitter device) USE every 90 days carvedilol 25 mg PO BID cholecalciferol (vitamin D3) 50 mcg PO DAILY 30 days coQ10 (ubiquinol) (Qunol Tigre CoQ10) 200 mg PO DAILY ezetimibe 10 mg PO DAILY fenofibrate 150 mg PO DAILY fluoxetine 40 mg PO DAILY furosemide 20 mg PO DAILY gabapentin 1,200 mg PO QID glucagon 3 mg/actuation (Baqsimi) 3 mg intranasal ONCE insulin lispro (Humalog KwikPen U-200 Insulin) 50 units 4 times daily subcutaneously use as directed; 90 days lamotrigine 100 mg PO DAILY lisinopril 20 mg PO DAILY loratadine 10 mg PO DAILY magnesium hydroxide (Dulcolax (magnesium hydroxide)) 400 mg PO DAILY PRN metformin 1,000 mg PO BID pen needle, diabetic (Comfort EZ Pen [place]) As directed rosuvastatin 40 mg PO DAILY 30 days HPI Comments Details: 50 year-old male with a past medical history of type 1 diabetes, who is seen in follow-up today for the same. Last seen by Tamara Jacobs APRN March 2025 . HgbA1C 07/09/25: 6.7% 04/10/25:7.0% 12/12/24 7.9% Diagnosed with type 1 diabetes in 1997. Developed Pancreatitis in 2014 and has subsequently had 2 pancreatic pseudocysts. Started Omniopod 5 in March 2024 and did not have success with this. He had multiple times when the pods was pulled off and he was unaware it was infusing and his glucose readings were not in good control. Current medications: basaglar 95 units daily NovoLog total daily dose 50 units 4tim es per day tries to count carbs 1:5 sensitivity 1:10?? Metformin 1000 b.i.d.? ? Dexcom G6 downloaded from June 26, 2025 to July 09, 2025 Average glucose 148 mg/dL G LA 6.9% Coefficient of variation 28.5% Within target range 80% High 18% Very high 2% Very low 0% Low 0% Time CGM active 96% Interpretation: Excellent Glycemic control with no hypoglycemia Denies family history of autoimmunity. Has retinopathy: Has appt next week was getting eye injections was monthly, now every 3 months , 05/22 Has Neuropathy, numbness and tingling, some pain, stabbing pain, near where the 5th digit was amputated, sees podiatry regularly. 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 05/10/2024 micro albumin 13.0 04/21/2024 eGFR>60 Has a history of HLD, and premature CAD in his father with prior LA in his 40's. LDL 16 04/01/24 On Rosuvastatin 5 mg PO daily and also Zetia 10 mg PO daily. Has CAD and has h/o 2 [id number] sees cardiology every 3 months Has attended [facility]. Denies prior DKA. Denies severe hypoglycemia in the past. Also with nontoxic MNG. TR 1 with last us done 2021 with no need for f/u Physical exam General: sitting comfortably in no acute distress HEENT: normocephalic/atraumatic, Neck: supple, Cardiac: normal heart sounds Pulm: normal breath sounds B/L, no added breath sounds Laboratory Tests 04/07/19 04/01/24 05/15/24 15:25 16:23 15:30 Hgb 14.7 Hct 41.4 L Plt Count 153 L Creatinine 1.20 Estimated GFR > 60 Glucose (Clinic) Hgb A1c (Clinic) AST 33 ALT 28 Triglycerides 263 H Cholesterol 96 LDL Cholesterol, Calc 16 HDL Cholesterol 28 L Urine Creatinine 196.11 Urine Microalbumin 13.0 Microalb/Creat Ratio 6.6 04/08/25 04/08/25 07/09/25 14:45 14:51 15:10 Hgb Hct Plt Count Creatinine Estimated GFR Glucose (Clinic) 133 H 145 H Hgb A1c (Clinic) 7.0 H AST ALT Triglycerides Cholesterol LDL Cholesterol, Calc HDL Cholesterol Urine Creatinine Urine Microalbumin Microalb/Creat Ratio 07/09/25 15:12 Hgb Hct Plt Count Creatinine Estimated GFR Glucose (Clinic) Hgb A1c (Clinic) 6.7 H AST ALT Triglycerides Cholesterol LDL Cholesterol, Calc HDL Cholesterol Urine Creatinine Urine Microalbumin Microalb/Creat Ratio [facility] Medical History (Updated 07/09/25 @ 16:05 by Kenna Vásquez MD) Dyslipidemia due to type 1 diabetes mellitus Neuropathy Vitamin D deficiency Multinodular thyroid HLD (hyperlipidemia) HTN (hypertension) T1DM (type 1 diabetes mellitus) Surgical History Hx of heart artery stent Hx of cholecystectomy History of appendectomy Family History Father Pancreatic disease CVD (cardiovascular disease) HTN (hypertension) Mother HTN (hypertension) Social History Alcohol intake: current Patient Tobacco Use Status: Never used Tobacco Physical Exam Vital Signs: Last Vital Signs Pulse 71 07/09/25 15:01 BP 158/82 H 07/09/25 15:01 Pulse Ox 97 07/09/25 15:01 Oxygen Delivery Method Room Air 07/09/25 15:01 BMI result Body Mass Index 35.7 Office Procedures Glucose Monitoring Details Details: See HPI 99535 - Glucose monitoring, continuous-physician I&R Procedure code (CPT) selection complete Results AMB Hemoglobin A1c 2 AMB Hemoglobin A1c 6.7 % Last Edit by UYEN Veronica on 07/09/25 15:19 Results Reviewed Results Reviewed: Laboratory Last Values Glucose (Clinic) 145 mg/dL (60-115) H 07/09/25 15:10 Hgb A1c (Clinic) 6.7 % (4.0-6.0) H 07/09/25 15:12 Assessment & Plan Assessment & Plan (1) T1DM (type 1 diabetes mellitus): Code(s): E10.9 - Type 1 diabetes mellitus without complications Category: Medical Qualifiers: Diabetes mellitus complication status: with hyperglycemia Qualified Code(s): E10.65 - Type 1 diabetes mellitus with hyperglycemia Plan: 50-year-old with type 1 diabetes mellitus with retinopathy and neuropathy followed by Podiatry with the an A1c of 6.7% 07/09/2025.. Excellent glycemic control Continue current dosing Patient was encouraged to f/u with pod and opth on a regular basis. He is using very high doses of insulin, but he has such good adherence, but can consider U 500 in the future if there is a problem with the adherence. He is also very insulin resistant clearly, I thought about considering putting him on a GLP 1/GI P agonist such as Mounjaro or Ozempic, but he has a history of pancreatitis, we will consider risk versus benefit in the future. Also unclear why he is on metformin 1000 b.i.d. with a history of type 1 diabetes mellitus. We will check C-peptide plus antibody levels to confirm diagnosis. He is due for his labs, patient tells me he got labs done at [facility] recently for all annual routine testing, we will obtain records. The patient had an opportunity to ask questions regarding treatment plan. The patient expressed understanding and agreement with the above treatment plan. The patient is aware they should contact our office by phone for worsening glucose readings or for any low blood sugars which may warrant a change in diabetes medication. Compliance is encouraged with medications and any followup testing/consults which may have been ordered. (2) Dyslipidemia due to type 1 diabetes mellitus: Code(s): E10.69 - Type 1 diabetes mellitus with other specified complication; E78.5 - Hyperlipidemia, unspecified Category: Medical Plan: Elevated triglyceride levels in the past. No recent lipid panel in the chart. Per patient he got those done recently, has a history of CAD with stenting. Currently on rosuvastatin 40 mg daily, Zetia, fenofibrate 150 mg daily. Patient asked me regarding consideration for Vascepa or echo supplement at [facility]. I told him I do not have any lipid panels in the chart. We will obtain records and then we can talk about it. Interestingly he follows with Cardiology but they told him to address this with me? Plan I spent 30 minutes in reviewing the record, seeing the patient and documenting in the medical record. Orders: Orders 2 Glutamic acid decarboxylase Ab Today E10.65 - Type 1 diabetes mellitus with hyperglycemia Islet Cell Antibody Scrn/Titer Today E10.65 - Type 1 diabetes mellitus with hyperglycemia TSH reflex Free T4 Today E10.65 - Type 1 diabetes mellitus with hyperglycemia AMB Glucose Monitoring Today E10.65 - Type 1 diabetes mellitus with hyperglycemia AMB Hemoglobin A1c Today E10.65 - Type 1 diabetes mellitus with hyperglycemia, Z13.9 - Encounter for screening, unspecified C Peptide Today E10.65 - Type 1 diabetes mellitus with hyperglycemia Glucose Random Today E10.65 - Type 1 diabetes mellitus with hyperglycemia Medications: New 2 blood-glucose sensor (Dexcom G7 Sensor device) As directed every 10 days 6 ea 4RF E10.65 - Type 1 diabetes mellitus with hyperglycemia Coding Level of Care Code Est Pt Level 4 (36714) Diagnoses Type 1 diabetes mellitus with hyperglycemia E10.65 Diabetes mellitus complication status: with hyperglycemia Dyslipidemia due to type 1 diabetes mellitus E10.69; E78.5 CPT Codes Details - CPT: 43110 - Glucose monitoring, continuous-physician I&R ([id number]) Time Spent (min) 30
[2025-07-09 15:14] LABS: Glucose, Whole Blood 145 mg/dL (60-115)
--- OUTSIDE RECORDS SUMMARY | 2025-07-09 18:22 | XMS_ITS | Encounter Summary ---
Author Organization [facility] Address [address] [place] [address] [place] [phone] Phone Care Team Providers Care Display Associate Name Role Phone Anju Orta VMWARE CONSULTANT Primary Care Provi melissa Unavailable Encounter Details Date Type Department Care Team (Latest Contact Info) Description 01/08/2018 Ancillary Orders [facility] [address] [place] [address] [address] Floor, [address] [place] [address] Daryl Ferrell MD [address] [place] [phone] [email or web address] Chest pain, unspecified type Social History Tobacco Use Types Packs/Day Years Used Date Smoking Tobacco: Never Assessed Sex and Gender Information Value Date Recorded Sex Assigned at Not on file Legal Sex Male 7:01 PM EST Gender Identity Not on file Sexual Orientation Not on file documented as of this encounter Plan of Treatment Not on file documented as of this encounter Results * NC Myocardial Perfusion Stress Single (01/08/2018 8:47 AM EDT) Anatomical Region Laterality Modality Heart Ultrasound Narrative 01/09/2018 9:31 AM EDT Normal study. There is no evidence of myocardial infarction or ischemia. Normal LV size and function with no regional wall motion abnormalities. Very low likelihood of hemodynamically significant coronary artery disease. Low risk study for myocardial events or cardiac in the next two years. Study Quality Overall image quality is good. There are no artifacts present. NC Study Impression Left ventricular perfusion is normal. Interpretation of the study indicates that it is normal. This is a low risk study. There is no prior study for comparison. Stress Test Result Exercise Stress Test Report: Reason for termination: Fatigue Summary: Resting ECG: SR HR 83 RSR' AVR and V1 and NSSTW Functional capacity: Average Heart rate response to exercise:Appropriate Blood pressure response to exercise: Normal hypertensive-appropriate response Chest pain:None Arrhythmias:None ST-T changes:None Overall impression: Normal exercise stress test Conclusion: Ron Campbell exercised for 10:13 Minutes on a standard Ricky protocol achieving 82% MPHR (146 BPM) and 7.00 METS. Test terminated due to fatigue Summary: 1. EKG: No EKG evidence of ischemia per criteria 2. Symptoms: No exertional chest pain or symptoms concerning for angina 3. Exercise physiology: Normal heart rate and BP response to exercise. Max HR 146 with normal HR recovery. Max BP 230/100 from baseline BP of 152/92. 02 sat 97% and stable throughout the procedure. Average functional capacity for age noted 4. Arrhythmia:None Conclusion: Normal ETT. No ischemic EKG changes. Vital signs at baseline at time of discharge from the lab. Nuclear images to follow. EKG reviewed with Dr. Miller. Sara Hook NP Nuclear Cardiology Measurements End systolic (mL): 51 End diastolic (mL): 105 Ejection Fraction (%): 51 Ejection Fraction: Normal (50-69%) The left ventrical is functioning with normal perfusion quality. Patient was injected with 12.0mCi of Tc99m Sestamibi Lt AC IV during stress NC Conclusion Normal study. There is no evidence of myocardial infarction or ischemia. Normal LV size and function with no regional wall motion abnormalities. Very low likelihood of hemodynamically significant coronary artery disease. Low risk study for myocardial events or cardiac in the next two years. Perfusion Scoring Stress Summed Score: 0 Percent Normal: 0.00% The left ventricular perfusion is normal. us Daryl Ferrell MD CV NM CARDIAC Final Result documented in this encounter Visit Diagnoses Diagnosis Chest pain, unspecified type Chest pain, unspecified type documented in this encounter Care Teams Display Associate Relationship Specialty Start Date End Date Anju Orta NP PCP - General Family Medicine 01/08/18 documented as of this encounter Additional Source Comments The information contained in this document represents components of the legal health record. It is not the complete legal health record.[facility]
--- OUTSIDE RECORDS SUMMARY | 2025-07-09 18:22 | XMS_ITS | Clinical Summary ---
Author Organization [facility] Address [address] [place], [place] [id number] Phone Care Team Providers Care Head Stock Transfer Clerk Name Role Phone Anju Orta PARKING STATION ATTENDANT Primary Care Provi melissa Unavailable Social History Tobacco Use Types Packs/Day Years Used Date Smoking Tobacco: Never Assessed Education Answer Date Recorded Are you interested in more education? Not on shelli e 03/12/2023 Are you concerned about learning? Not on file 03/12/2023 No 03/12/2023 No 03/12/2023 Digital Access Answer Date Recorded No 03/25/2023 No 03/25/2023 No 03/25/2023 Reliable internet access at home? Not on file 03/25/2023 Device with a working camera? Not on file Sex and Gender Information Value Date Recorded Sex Assigned at Not on file Legal Sex Male 7:01 PM EST Gender Identity Not on file Sexual Orientation Not on file Last Filed Vital Signs Vital Sign Reading Time Taken Comments Blood Pressure 160/90 01/08/2018 8:40 AM EDT Pulse - - Temperature - - Respiratory Rate - - Oxygen Saturation 97% 01/08/2018 8:27 AM EDT Inhaled Oxygen Concentration - - Weight - - Height - - Body Mass Index - - Plan of Treatment Not on file Medical Devices Not on file Insurance [employer] NET PARTIAL Member Subscriber Plan / Payer (Ef fective 2018-Present) Name:Ron Campbell Relation to Subscriber:Self Name:Ron Campbell Payer ID:Not on file Group ID:Not on file Type:Med[address] PCP [employer] [place] S[employer] NET PARTIAL [employer]ENSE NON NSPG PCP [employer] NET PARTIAL Member Subscriber Plan / Payer (Ef fective 2018-Present) Name:Ron Campbell Relation to Subscriber:Self Name:Ron Campbell Payer ID:Not on file Group ID:Not on file Type:Medicaid Address: [address] NON NSPG PCP [employer] NET PARTIAL Member Subscriber Plan / Payer (Ef fective 2018-Present) Name:Ron Campbell Relation to Subscriber:Self Name:Ron Campbell Payer ID:Not on file Group ID:Not on file Type:Medicaid Address: [address] NON NSPG PCP [employer] NET PARTIAL Member Subscriber Plan / Payer (Ef fective 2018-Present) Name:Ron Campbell Relation to Subscriber:Self Name:Ron Campbell Payer ID:Not on file Group ID:Not on file Type:Medicaid [address] PCP [employer] NET PARTIAL WELL[employer]ENSE NON NSPG PCP [employer] NET PARTIAL Member Subscriber Plan / Payer (Ef fective 2018-Present) Name:Ron Campbell Relation to Subscriber:Self Name:Ron Campbell Payer ID:Not on file Group ID:Not on file Type:Medicaid Address: [address] NON NSPG PCP [employer] NET PARTIAL Member Subscriber Plan / Payer (Ef fective 2018-Present) Name:Ron Campbell Relation to Subscriber:Self Name:Ron Campbell Payer ID:Not on file Group ID:Not on file Type:Medicaid Address: [address] NON NSPG PCP [employer] NET PARTIAL NON NSPG PCP [facility] Care Teams Head Stock Transfer Clerk Relationship Specialty Start Date End Date Anju Orta NP PCP - General Family Medicine 01/08/18 Additional Source Comments The information contained in this document represents components of the legal health record. It is not the complete legal health record.[facility]
--- OUTSIDE RECORDS SUMMARY | 2025-07-09 18:22 | XMS_ITS | Patient Health Record ---
[facility] Organization [facility] Address [address] [place] [address] Care Team Providers Care Lieutenant Fire Fighter Name Role Phone Chavez Neelam Primary Care Provider Bettina Mendoza Unavailable [phone] Allergies Allergen (clinical drug ingredient) Drug/Non Drug Allergy documented on EMR Reaction Allergy Type Onset Date Status Substance with 0-mlafskt-1-methyl glutaryl-coenzyme A reductase inhibitor mechanism of action (substance) Statins (uncoded) leg pain Allergy Acti ve Niaspan flushing & itching Drug Allergy Active morphine Morphine hallucenations Drug Allergy Ac tive Results Component Value Reference Range Notes X ray : Foot, left 3V Reviewed date:10/06/2024 07:49:24 PM Interpretation:See Examination above Performing Lab: Notes/Report: See Examination above HEMOGLOBIN A1C (GLYCOHEMOGLO BIN) Reviewed date:12/09/2024 03:13:00 PM Interpretation: Performing Lab: Notes/Report: HEMOGLOBIN A1C % (HH) 6.7 HEMOGLOBIN A1C (GLYCOHEMOGLO BIN) Reviewed date:05/26/2025 03:15:14 PM Interpretation: Performing Lab: Notes/Report: HEMOGLOBIN A1C % (HH) 6.9 Reason For Referral No Information Medications Medication SIG (Take, Route, Frequency, Duration) Notes Start Date End Date Status NovoLOG FlexPen 100 UNIT/ML as directed Subcutaneous Not -Taking Brilinta 60 MG 1 tablet Orally Twic e a day Not-Taking Cephalexin 500 MG 1 capsule Orally sandy ry 6 hrs; Duration: 7 days Not-Taking Crotan 10 % APPLY 2-4 GMS TO FOC AL PAIN AREA TWICE DAILY AFTER COMPOUND; Duration: 29 Active Magnesium Active Carvedilol 12.5 MG 1 tablet with food Orally Twice a day Not-Taking Jardiance Not-Taking Work Note . . . pt out of work t ill next viasit 05/26 Not-Taking Ezetimibe 10 MG 1 tablet Orally Once a day; Duration: 30 day(s) Not-Ryan ing Loprox 0.77 % 1 application Director Orange ally Twice a day; Duration: 30 days 11/15/2021 Not-Taking busPIRone HCl 5 MG 1 tablet Orally Active Tamsulosin HCl 0.4 MG 1 capsule Orally O nce a day; Duration: 30 day(s) Not-Ryan ing Rosuvastatin Calcium 5 MG 1 tablet Orally Once a day Active Nabumetone 500 MG 1 tablet Orally Twic e a day Not-Taking CoQ-10 Active Lasix 20 MG 1 tablet Orally twic e daily 10mg Active Lisinopril 20 MG 1 tablet Orally Once a day; Duration: 30 days Active Gabapentin 400 MG 3 capsule Orally fou r times a day; Duration: 30 days Active Tresiba 100 UNIT/ML as directed Subcutaneous Not-Taking FreeStyle InsuLinx Test - as directed In Vitro Active levoFLOXacin 750 MG 1 tablet Orally Once a day; Duration: 10 day(s) 05/26/2022 Not-Ryan ing FLUoxetine HCl 20 MG 1 capsule Orally On ce a day; Duration: 30 day(s) Active Santyl 250 UNIT/GM 1 application to affected area Externally to Foot Ulcer Once a day to wound right 5th toe 20 x 20 x 3 mm; Duration: 30 days Not-Taking lamoTRIgine 25 MG 1 tablet Orally twic e daily Active TH Loratadine Active Toujeyue SoloStar 300 UNIT/ML as directed Subcutaneous Act dori metFORMIN HCl 1000 MG 1 tablet with a me al Orally Once a day; Duration: 30 day(s) Active Bactrim DS 800-160 MG 1 tablet Orally Tw ice a day; Duration: 10 day(s) 07/23/2019 Not-Ryan ing Aspirin Active Pravastatin Sodium N ot-Taking Fenofibrate 150 MG 1 capsule with food Orally Once a day Active Doxycycline Not-Taki ng Diflorasone Diacetate 0.05 % APPLY 1-2 GRAMS TO BOTH FEET TWICE DAILY AFTER COMPOUND; Duration: 30 Active Extra Depth Orthopedic Shoes (1 Pair) with Customized Heat Molded Multidensity Innersoles (3 Pair) as directed Dx: IDDM/Polyneuropathy (E10.42), Hammertoe Foot Deformity (M20.41,M20.42), Preulcerative Skin Lesion(s) (L85.1) 03/11/2024 Active Proxivol 2 % APPLY 1-2 GRAMS TO B OTH FEET TWICE DAILY AFTER COMPOUND; Duration: 14 Active Vitamin D Active Immunizations Vaccine Route Administration Date Status Comme nts Influenza Unknown 07/30/2019 Refused Influenza Unknown 08/14/2019 Administered Influenza Unknown 08/13/2020 Administered Influenza Unknown 08/15/2023 Administered Influenza Unknown 05/26/2025 Refused Social History Tobacco Use: Social History Observation Description Date Details (start date - stop date) Never Smoker NA - NA Tobacco use other than smoking: Question Answer Notes Are you an other tobacco user? No Tobacco Control (Standard) Question Answer Notes Tobacco use: Nonsmoker Additional Findings: Tobacco non-user Current no nsmoker AUDIT-C (Standard) Question Answer Notes Did you have a drink containing alcohol in the p ast year? No Points 0 Interpretation Negative Problems Problem Type SNOMED Code ICD Code Onset Dates Problem Status W/U Status Risk Notes Problem Acquired hammer toe of right foot (9607297967812202 ) Other hammer toe(s) (acquired), right foot (M20.41) Active confirmed Problem Acquired hammer toe of left foot (9907146997070906 ) Other hammer toe(s) (acquired), left foot (M20.42) Active confirmed Problem Polyneuropathy due to diabetes mellitus type I (704845603) Type 1 diabetes mellitus with diabetic polyneuropathy (E10.42) Active confirmed Problem Neuropathy (131329858) Neuropathy (G62.9) Active confirmed Vital Signs Heart Rate 73 /min 10/06/2024 Blood pressure diastolic 71 mm Hg 05/26/2025 Height 5ft 6in in 05/26/2025 Blood pressure systolic 140 mm Hg 05/26/2025 Weight 220 lbs 05/26/2025 BMI 35.51 kg/m2 05/26/2025 Procedures Procedure Date Ordered Date Performed Result Body Sit e 98512-JHDBHIC NAIL, 6 OR MORE 09/09/2024 N/A 40325-BJOA SKIN LESIONS, OVER 4 09/09/2024 N/A 24900 I&D ABSCESS- SIMPLE,SINGLE 10/06/2024 N/A 04062- Debride <25 sq cm 10/15/2024 N/A 49725-SEXQSUM NAIL, 6 OR MORE 12/09/2024 N/A 13843-NWWN SKIN LESIONS, OVER 4 12/09/2024 N/A 04461-CUVYRAM NAIL, 6 OR MORE 05/26/2025 N/A 67953-OBFM SKIN LESIONS, OVER 4 05/26/2025 N/A Encounters Encounter Location Date Provider Diagnosis [address] [address] 09/09/2024 Bettina Black Type 1 diabetes mellitus with diabetic polyneuropathy E10.42 and Tinea unguium B35.1 [facility] [address] [place] [address] 10/06/2024 Bettina Black Abscess of left foot L02.612 ; Cellulitis of foot, left L03.116 ; Toe osteomyelitis M86.9 ; History of osteomyelitis Z87.39 and Type 1 diabetes mellitus with foot ulcer E10.[address] [address] 10/15/2024 Bettina Black Abscess of left foot L02.612 ; Cellulitis of foot, left L03.116 ; Type 1 diabetes mellitus with foot ulcer E10.621 ; Neuritis M79.2 ; Neuropathic pain M79.2 ; 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 and Type 1 diabetes mellitus with diabetic polyneuropathy E10.[address] [address] 12/09/2024 Bettina Black Type 1 diabetes mellitus with diabetic polyneuropathy E10.42 and Tinea unguium B35.[address] [address] 05/26/2025 Bettina Black Type 1 diabetes mellitus with diabetic polyneuropathy E10.42 ; Neuritis M79.2 ; Tinea unguium B35.1 ; Other hammer toe(s) (acquired), right foot M20.41 ; Other hammer toe(s) (acquired), left foot M20.42 ; Neuropathy G62.9 and [facility] [address] [address] 10/03/2024 Bettinakiran Rocha [facility] [place] [address] [facility] [address] [place] [address] 10/06/2024 [facility] [place] [address] [place] [address] 10/06/2024 [facility] [address] 03/17/2025 [facility] Encounter Date Diagnosis (ICD Code) Assessment Notes Treatment Notes Treatment Clinical Notes Section Notes 09/09/2024 Tinea unguium (ICD-10 - B35.1) 09/09/2024 Type 1 diabetes mellitus with diabetic polyneuropathy (ICD-10 - E10.42) 10/06/2024 Abscess of left foot (ICD-10 - L02.612) Patient Educated with: WOUND CARE INSTRUCTIONS. pdf (WOUND CARE INSTRUCTIONS. pdf) 10/06/2024 Cellulitis of foot, left (ICD-10 - L03.116) 10/15/2024 Abscess of left foot (ICD-10 - L02.612) 10/15/2024 Cellulitis of foot, left (ICD-10 - L03.116) 12/09/2024 Type 1 diabetes mellitus with diabetic polyneuropathy (ICD-10 - E10.42) 05/26/2025 Type 1 diabetes mellitus with diabetic polyneuropathy (ICD-10 - E10.42) 05/26/2025 Neuritis (ICD-10 - M79.2) 05/26/2025 Tinea unguium (ICD-10 - B35.1) 12/09/2024 Tinea unguium (ICD-10 - B35.1) 10/15/2024 Type 1 diabetes mellitus with foot ulcer (ICD-10 - E10.621) Patient Educated with: WOUND CARE INSTRUCTIONS. pdf (WOUND CARE INSTRUCTIONS. pdf) 10/06/2024 Toe osteomyelitis (ICD-10 - M86.9) 10/06/2024 History of osteomyelitis (ICD-10 - Z87.39) 10/15/2024 Neuritis (ICD-10 - M79.2) 05/26/2025 Other hammer toe(s) (acquired), right foot (ICD-10 - M20.41) Patient Educated with: DIABETIC FOOT CARE INSTRUCTIONS. pdf (DIABETIC FOOT CARE INSTRUCTIONS. pdf) 05/26/2025 Other hammer toe(s) (acquired), left foot (ICD-10 - M20.42) 10/15/2024 Neuropathic pain (ICD-10 - M79.2) 10/06/2024 Type 1 diabetes mellitus with foot ulcer (ICD-10 - E10.621) 10/15/2024 Non-pressure chronic ulcer of other part of left foot limited to breakdown of skin (ICD-10 - L97.521) 05/26/2025 Neuropathy (ICD-10 - G62.9) 05/26/2025 Side effect of medication (ICD-10 - T88.7XXA) 10/15/2024 Type 1 diabetes mellitus with diabetic polyneuropathy (ICD-10 - E10.42) 10/06/2024 Other Plan Of Treatment Pending Test Test Name Order Date X ray : Foot, right 2V 11/15/2021 *Wound Culture 07/23/2019 *Wound Culture 10/06/2024 X ray : Foot, left 3V 06/28/2021 X ray : Foot, right 3V 05/02/2022 58651-UIZFXZC NAIL, 6 OR MORE 11/26/2019 90284-LELMDWA NAIL, 6 OR MORE 04/15/2021 48022-IKDWADI NAIL, 6 OR MORE 02/14/2022 31220-LQUXYJW NAIL, 6 OR MORE 02/27/2023 26895-JICBUPI NAIL, 6 OR MORE 09/04/2023 53275-QDDFRRK NAIL, 6 OR MORE 03/11/2024 66782-NHCMMTM NAIL, 6 OR MORE 09/09/2024 07210-GZDYPHE NAIL, 6 OR MORE 12/09/2024 45323-KHIASOQ NAIL, OR MORE 05/26/2025 85674-Cvulsjyl Plate 05/30/2023 48477-Ahexcnrl Plate 09/13/2022 62422-Bdgcwvxq Plate 12/13/2022 73751-Zgvvswkg Plate 10/10/2019 94783-Vbegqxmj Plate Each Additional 02/ 54254-Ontoqqqa Plate Each Additional 11/2022 58425- Debride <25 sq cm 12/13/2022 32498- Debride <25 sq cm 02/27/2023 94366- Debride <25 sq cm 02/14/2022 27261- Debride <25 sq cm 10/15/2024 89466-VNFPNJQ SKIN/TISSUE 05/26/2022 13039-OLQXXJJ SKIN/TISSUE 11/26/2019 17444-LHLQUWX SKIN/TISSUE 07/23/2019 50661 I&D ABSCESS- SIMPLE,SINGLE 024 19830-QTAB SKIN LESIONS, OVER 4 12/09/19 25 38644-HLDC SKIN LESIONS, OVER 4 03/11/20 24 44596-ZCXN SKIN LESIONS, OVER 4 05/26/20 25 28420-RXVF SKIN LESIONS, OVER 4 04/15/20 21 44769-ECLG SKIN LESIONS, OVER 4 11/26/19 20 19660-POYL SKIN LESIONS, OVER 4 02/15/20 22 61025-PREF SKIN LESIONS, OVER 4 06/30/20 21 72758-HZYT SKIN LESIONS, OVER 4 11/15/19 22 17948-OPRV SKIN LESIONS, OVER 4 02/28/20 23 21575-YCHF SKIN LESIONS, OVER 4 12/13/19 23 37805-LTHZ SKIN LESIONS, OVER 4 05/30/20 23 95810-OZDQ SKIN LESIONS, OVER 4 09/04/20 23 49950-OTAE SKIN LESIONS, OVER 4 09/09/20 24 41115-XKWL SKIN LESIONS, 2 TO 4 09/13/20 22 M7423-IVVUSSVW DYSTROPHIC NAILS ANY # G6034-QCGDEVWB DYSTROPHIC NAILS ANY # 30601- Removal of Foreign Body, Subcut 0 03/11/2024 Next Appt Details Provider Name:Bettina Curtis Rocha , 08/25/2025 03:30:00 PM, [address] [facility], [place], [address], Insurance Providers Payer Name Payer Address Payer Phone Subscriber Number Group Number Insured Name Patient Relationship to Insured Coverage Start Date Coverage End Date [facility] [address] [place] [address] [id number] Ron Campbell Self - patient is the insured Medical (General) History Medical History History ICD Code Anxiety Back,Hip,and Knee pain Broken bones Diabetic Gall bladder problems High blood pressure Numbness Stomach ulcer ulcer Chicken pox Prostate conditions Cholelithiasis Pancreatitis Obstructive Sleep apnea Rotator cuff tendonitis Clavicle fracture Congestive heart failure Hernia Type 1 diabetes mellitus with foot ulcer E10.621 Amputation of toe of left foot S98.132A Primary osteoarthritis, left ankle and f oot M19.072 Hallux valgus (acquired), left foot M20. 12 Displaced fracture of fourth metatarsal bone, left foot, subsequent encounter for fracture with delayed healing S92.342G Toe osteomyelitis M86.9 Surgical History Surgery Date(Month/Year) appendectomy pancreatic cysts finger surgery - fracture left fifth stents heart 12/2022 hernia 04/06 Hospitalization History Reason Date(Month/Year) hernia 04/22 [facility] infection left foot 09/08/19 [facility] left toe amputation, infection 07/30
--- OUTSIDE RECORDS SUMMARY | 2025-07-09 18:22 | XMS_ITS | Encounter Summary ---
Author Organization [facility] Address [address] [place] [address] [place], [place] [id number] Phone Care Team Providers Care Mold Swabber Name Role Phone Pcp, Unknown Primary Care Provider Anju Sotomayor ENGRAVER [employer] Primary Care Provi melissa Unavailable Encounter Details Date Type Department Care Team (Latest Contact Info) Description 11/19/2017 Ancillary Orders [facility] [address], [address] [place] [address] Daryl Ferrell MD [address] [place] [id number] [email or web address] Chest pain, unspecified type Social [...] on file documented as of this encounter Visit Diagnoses Diagnosis Chest pain, unspecified type documented in this encounter Care Teams Mold Swabber Relationship Specialty Start Date End Date Pcp, Unknown PCP - General 11/19/17 01/07/18 Anju Orta NP PCP - General Family Medicine 01/08/18 documented as of this encounter Additional Source Comments The information contained in this document represents components of the legal health record. It is not the complete legal health record.[facility]
== END 2025-07-09 15:59 | disposition home or self-care (01) ==
LOC: HO.ENCR 14:54
PROVIDERS: PCP Nurse Practitioner Adult Health; Visit Provider Student in an Organized Health Care Education/Training Program
DX: E10.65 Type 1 diabetes mellitus with hyperglycemia (principal); E10.69 Type 1 diabetes mellitus with other specified complication; E78.5 Hyperlipidemia, unspecified; Z13.9 Encounter for screening, unspecified
CPT/HCPCS: 95251; 99214